=== PATIENT | male | born 1960 | race Caucasian/White ===

== ENCOUNTER → 2019-01-31 14:45 | Outpatient (CLI) | payer OTHER, SELFPAY ==
[2019-01-31 15:42] LABS: HEMOLYSIS < 15 (0-50); Iron 189 ug/dL (49-181)
[2019-01-31 15:51] LABS: Add Manual Diff / Slide Review NO; Basophils Absolute Auto 100 /uL (0-100); Basophils Percent Auto 1.2 % (0-2); Eosinophils Absolute Auto 400 /uL (0-450); Eosinophils Percent Auto 6.6 % (2-4); Hematocrit 46.8 % (41-53); Hemoglobin 16.1 g/dL (13.5-17.5); Lymphocytes Absolute Auto 1800 /uL (1100-4500); Lymphocytes Percent Auto 27.2 % (25-40); Mean Corpuscular HGB Conc 34.4 % (30-36); Mean Corpuscular Hemoglobin 33.2 PG (26-34); Mean Corpuscular Volume 96.4 fL (80-100); Monocytes Absolute Auto 600 /uL (0-900); Monocytes Percent Auto 9.3 % (3-14); Neutrophils Absolute Auto 3600 /uL (1500-7000); Neutrophils Percent Auto 55.7 % (50-75); Platelet Count 230 X10^3/uL (150-400); Red Blood Cell Count 4.86 X10^6/uL (4.5-5.9); Red Cell Distribution Width 13.1 % (11.6-14.8); White Blood Cell Count 6.5 X10^3/uL (4.5-11.0)
[2019-01-31 15:52] LABS: Percent Iron Saturation 56 % (20-50); Total Iron Binding Capacity 335 ug/dL (261-462); Transferrin 260 mg/dL (206-381)
== END ==
PROVIDERS: PCP Internal Medicine; Visit Provider Internal Medicine
DX: K62.5 Hemorrhage of anus and rectum (principal)
CPT/HCPCS: 36415; 83540; 83550; 85025

== ENCOUNTER 2019-09-12 14:47 | Observation (INO) | payer OTHER, SELFPAY ==
[2019-09-12] VITALS (14 sets, daily range): BP systolic 115–139; BP diastolic 63–89; PULSE 54–104; RESP 10–18; TEMP 35.9–37.6; O2SAT 91–97; BMI 29.2
--- NOTE | 2019-09-12 | DI.RAD.S_ITS ---
PROCEDURE: XR ANKLE LT MIN 3V INDICATIONS: EXTERNAL FIXATOR PLACEMENT TECHNIQUE: 7 operative views of the ankle were acquired. COMPARISON: [facility], , XR ANKLE LT MIN 3V, 09/12/2019, 15:19. FINDINGS: 7 operative images are obtained during performance of external fixation of a markedly comminuted distal tibial fracture IMPRESSION: Operative imaging utilized during performance of external fixation of a markedly comminuted distal tibial fracture. Dictated by: Maxwell Zuluaga M.D. on 09/15/2019 at 9:01 Approved by: Maxwell Zuluaga M.D. on 09/15/2019 at 9:04
--- NOTE | 2019-09-12 15:11 | DI.RAD.S_ITS ---
PROCEDURE: XR ANKLE LT MIN 3V INDICATIONS: missed step on ladder left ankle injury TECHNIQUE: 3 views of the ankle were acquired. COMPARISON: [facility], CR, FOOT 3V LEFT, 11/13/2017, 18:53. FINDINGS: Bones: There is a comminuted distal tibia fracture, with intra-articular involvement. There is moderate displacement. The distal fibula demonstrates a comminuted fracture seen at the level of the syndesmosis, with lesion. There is widening of the syndesmosis and associated widening of ankle mortise. No definite posterior malleolar fracture can be seen. The talar dome demonstrates no krishna abnormality. Age-appropriate bony degenerative changes are seen. Plantar and Achilles calcaneal spurs are seen. No suspicious lytic or blastic lesions are seen. Soft tissues: No tibiotalar joint effusion. Achilles tendon appears normal. IMPRESSION: Comminuted fractures of the distal tibia and distal fibula. There is intra-articular involvement seen and there is widening of the syndesmosis with widening of ankle mortise. Dictated by: Mason Matthew M.D. on 09/12/2019 at 14:53 Approved by: Mason Matthew M.D. on 09/12/2019 at 14:55
--- NOTE | 2019-09-12 16:14 | ED.LOWEXIN ---
HPI - Extremity Injury (Lower) General Chief Complaint: Extremity Injury, Lower Stated Complaint: LEFT ANKLE INJURY FALL LIGHT HEADED Time Seen by Provider: 09/12/19 16:14 Source: patient Mode of arrival: Wheelchair Limitations: no limitations History of Present Illness HPI Narrative: 59-year-old male comes emergency department with concern for ankle fracture. Patient states he was on a ladder today. He went to jump off try to land on his steps missed an hurt his ankle. He states he has pain anytime he tries ankle. He denies any numbness or tingling. He is able to wiggle his toes. He denies any other injuries. He has history of hypertension and asthma. Denies any other medical issues. Denies any prior surgeries. Denies any allergies to medications. Patient does orthopedic surgeon has been in the past. Related Data Home Medications Medication Instructions Recorded Confirmed amlodipine [Norvasc] 5 mg PO QDAY #0 09/04/16 mometasone-formoterol [Dulera] 1 inh INH #0 09/04/16 Allergies Allergy/AdvReac Type Severity Reaction Status Date / Time No Known Drug Allergies Allergy Verified 09/12/19 15:10 Review of Systems Review of Systems ROS Unobtainable: All systems reviewed & are unremarkable except as noted in HPI and below Patient History Social History household members: spouse Smoking Status: Never smoker alcohol intake frequency: 0-2 drinks per day Alcohol type: beer Substance Use Type: does not use Exam Narrative Exam Narrative: GENERAL: Alert and oriented x three, well-nourished, well-appearing male in mild distress. HEENT: Head normocephalic, atraumatic, EOMI, pupils reactive, face symmetric, moist mucous membranes NECK: Supple, full range of motion CARDIOVASCULAR: Regular rate and rhythm without murmurs, rubs or gallops. RESPIRATORY: Breath sounds equal bilaterally, no wheezes rales or rhonchi. ABDOMEN: Soft, nontender. Normoactive bowel sounds all 4 quadrants. No guarding or rebound, rigidity, no mass : No CVA tenderness EXTREMITIES: Patient has mild deformity of the left ankle. He has 2+ dorsalis pedis. He has cap refill less than 2 seconds in all 5 toes, he has normal sensation in all 5 toes and throughout the foot. No obvious ecchymosis. Patient does have some mild edema. Neurovascularly intact NEUROLOGICAL: Cranial nerves II through XII grossly intact. Moving all extremities SKIN: Warm, dry, no petechiae, no rashes or lesions. Initial Vital Signs Initial Vital Signs: Vital Signs Temperature 96.6 F L 09/12/19 15:07 Pulse Rate 54 L 09/12/19 15:07 Respiratory Rate 16 09/12/19 15:07 Pulse Oximetry 95 09/12/19 15:07 Course Orders Ordered: ED Orders 09/12/19 15:11 XR ankle LT min 3V Stat Fentanyl (Sublimaze) 0 mcg IV Q5M PRN PRN Reason: Pain, Moderate (4-6) Hydromorphone HCl (Dilaudid) 0.5 mg IV Q2H PRN PRN Reason: Pain, Severe (7-10) Last Admin: 09/12/19 19:27 Dose: 0.5 mg Documented by: SHAWN Hydromorphone HCl (Dilaudid) 0 mg IV Q5M PRN PRN Reason: Pain, Moderate (4-6) Lactated Ringer's (Lactated Ringers) 1,000 mls @ 42 mls/hr IV CONT EDEL Meperidine HCl (Demerol) 12.5 mg IV NOW PRN PRN Reason: Mild pain or shivering Naloxone HCl (Narcan) 0.2 mg IV Q2MIN PRN PRN Reason: Opiate Reversal Ondansetron HCl (Zofran) 4 mg IV Q4HR PRN PRN Reason: Nausea And Vomiting Ondansetron HCl (Zofran) 4 mg IV NOW PRN PRN Reason: Nausea And Vomiting Discontinued Medications Cefazolin Sodium/Dextrose (Ancef) 2 gm in 100 mls @ 200 mls/hr IV NOW ONE Stop: 09/12/19 18:15 Morphine Sulfate (Morphine) 4 mg IV NOW ONE Stop: 09/12/19 16:21 Last Admin: 09/12/19 16:52 Dose: 4 mg Documented by: NERIS Vital Signs Vital signs: Vital Signs - 8 hr 09/12/19 15:07 Temperature 96.6 F L Pulse Rate 54 L Respiratory Rate 16 Pulse Oximetry 95 MDM - Extremity Injury (Lower) Imaging Data Left ankle x-ray: Radiologist's impression: [address] [address] XRay Report Signed Patient: Kam Arce WMR#: [id number] : 1960Acct:[id number] Age/Sex: 59 / MDate of Service: 09/12/19 Loc: ED Accession Number: [id number] Procedure: XR ankle LT min 3V Ordering Provider: Barby Edwards D.O. PROCEDURE: XR ANKLE LT MIN 3V INDICATIONS: missed step on ladder left ankle injury TECHNIQUE: 3 views of the ankle were acquired. COMPARISON: [facility], CR, FOOT 3V LEFT, 11/13/2017, 18:53. FINDINGS: Bones: There is a comminuted distal tibia fracture, with intra-articular involvement. There is moderate displacement. The distal fibula demonstrates a comminuted fracture seen at the level of the syndesmosis, with lesion. There is widening of the syndesmosis and associated widening of ankle mortise. No definite posterior malleolar fracture can be seen. The talar dome demonstrates no krishna abnormality. Age-appropriate bony degenerative changes are seen. Plantar and Achilles calcaneal spurs are seen. No suspicious lytic or blastic lesions are seen. Soft tissues: No tibiotalar joint effusion. Achilles tendon appears normal. IMPRESSION: Comminuted fractures of the distal tibia and distal fibula. There is intra-articular involvement seen and there is widening of the syndesmosis with widening of ankle mortise. Dictated by: Mason Matthew M.D. on 09/12/2019 at 14:53 Approved by: Mason Matthew M.D. on 09/12/2019 at 14:55 [facility] Narrative Medical decision making narrative: I spoke with Dr. Yu, she did review patient's and plan for OR tonight. Patient is having a line placed and pain medications. Patient had some water initially on arrival. He had toast at 8:[address] Clarke in the department and consented patient. Discharge Plan Departure Patient Disposition: Admitted As Inpatient Clinical Impression: Ankle fracture, left Discharge Date/Time: 09/12/19 18:06 Instructions: DI for Ankle Fracture Additional Instructions: Follow-up with Orthopedic surgery in the next 5-7 days for recheck. Take the medication as prescribed, this medication can make you sleepy do not drive, perform hazardous activities or make any major decisions taking it. Splint Care: Keep splint clean and dry. Elevated affected body part to decrease swelling. OK to use ice pack on the affected body part. Use for 15-20 minutes each time, for 5-6x per day. If you develop worsening pain, numbness, tingling, discoloration of the affected body part, loosen the splint by loosening the MAYKEL wrap, and either see your doctor for an urgent re-assessment, or return to the Emergency Department. Return to the Emergency Department for any new or worsening symptoms. Referrals: Macey Clarke MD [Physician] - Amaury Dai MD [Primary Care Provider] - Admit Date/Time: 09/12/19 16:54 Admit Provider: Macey Clarke
[2019-09-12] MEDS: MORPHINE 4 MG/ML INJ IV (16:52)
--- NOTE | 2019-09-12 17:34 | PM.HP.1 ---
History of Present Illness History of Present Illness Date Patient Seen: 09/12/19 Time Patient Seen: 17:34 Chief complaint: LEFT ANKLE INJURY FALL LIGHT HEADED Narrative: This 59-year-old male that presented to the ER at [facility] today after falling off a ladder approximately 4 ft. He fell onto his left side twisted his ankle as he went down. He in dorsal ankle pain deformity swelling inability to weight bear and a knee and elbow abrasion as well as a small chin abrasion. X-rays in the [facility] Emergency room demonstrate a comminuted intra-articular tibial pilon fracture. Patient's past medical history significant for hypertension. He is not on any blood thinners. He does use inhaler occasionally for asthma. Otherwise past medical history is negative. Patient is with his in the emergency room. Denies loss of consciousness. Denies numbness or tingling. Injury happened at home Patient History Family & Social History Safety & Behavioral: Feels Safe in Current Yes Environment Been Physically Hurt or No Threatened By a Person Tobacco & Substance use: Smoking Status Never smoker alcohol intake frequency 0-2 drinks per day Substance Use Type does not use Meds Home Medications and Allergies Home Medications Medication Instructions Recorded Confirmed Type amlodipine [Norvasc] 5 mg PO QDAY #0 09/04/16 History mometasone-formoterol [Dulera] 1 inh INH #0 09/04/16 History Allergies Allergy/AdvReac Type Severity Reaction Status Date / Time No Known Drug Allergies Allergy Verified 09/12/19 15:10 Review of Systems Review of Systems Narrative: Pain left ankle. Mild tenderness around abrasions left knee left elbow otherwise negative ROS Unobtainable: All systems reviewed & are unremarkable except as noted in HPI and below Exam Vital Signs (past 8 hours): - 09/12/19 15:07 Temperature 96.6 F L Pulse Rate 54 L Respiratory Rate 16 Pulse Oximetry 95 Oxygen Delivery Method Room Air Narrative Exam Narrative: General exam: Alert oriented male in no acute distress in stretcher in the ER hallway. Pain currently controlled. Oriented to person place time an injury. X4 HEENT exam: Small bruise on his chin otherwise normocephalic atraumatic Respiratory exam: Clear to auscultation bilaterally CV exam: Regular rate and rhythm Abdomen exam: Nontender Extremities: Small abrasion elbow, left. Full range of motion right and left upper extremities nontender to palpation. Demonstrates active elbow flexion extension wrist flexion extension. Sensation grossly intact to light Lower extremity: Right lower extremity atraumatic no tenderness to palpation and no swelling full range of motion knee and ankle. Wiggles toes. Brisk capillary refill. Palpable dorsalis pedis pulse. Soft calf Left lower extremity demonstrates gross deformity at the ankle mild swelling no blisters. No open wounds. Patient wiggles toes. Dorsalis pedis pulses palpable. Calf is soft. Superficial abrasion at the left knee. Gross sensation to light touch superficial peroneal deep peroneal sural and saphenous nerve distributions. Rest of the motor sensory exam limited due to patient condition Objective Imaging Left ankle x-ray: My impression: Three views left ankle AP oblique and lateral demonstrate comminuted distal tibia fracture in the metaphysis into the plafond. The anterior lateral distal tibial fragment Chaput fragment is displaced approximately 2 cm overlapping the fibula. There additional free fracture flag minutes proximally and posteriorly Radiologist's impression: IMPRESSION: Comminuted fractures of the distal tibia and distal fibula. There is intra-articular involvement seen and there is widening of the syndesmosis with widening of ankle mortise. Dictated by: Mason Matthew M.D. on 09/12/2019 at 14:53 Approved by: Mason Matthew M.D. on 09/12/2019 at 14:55 Assessment & Plan Assessment and plan (1) Pilon fracture of left tibia: Problem details: Comminuted intra-articular tibial plafond fracture. Patient has significant displacement of his plafond with multiple fragments including a largely displaced Chaput fragment. Patient has been indicated for staged fixation of this injury we discussed that these intra-articular fractures are typically managed 1st with an external fixator and then when the soft tissues are amenable to definitive open reduction internal fixation with plates and screws. Plan will be to take the patient to the OR tonight for placement of external fixation. Following the external fixation the patient will have a CT scan for operative planning. The patient will be admitted to the hospital for pain control overnight. The patient will be discharged home when pain is controlled likely postop day 1. Patient will follow up in approximately 2 weeks for a skin check and scheduling for definitive fixation. The risks benefits and alternatives to the procedure were discussed with the patient in detail. The risks of surgery include but are not limited to infection, malunion, nonunion, persistence of pain, damage to nerves and blood vessels, posttraumatic arthritis, DVT, PE, cardiopulmonary complications and . The patient expressed a thorough understanding of the risks and benefits of surgery and has elected to proceed. Consent was signed. We discussed that this would be a likely 2 stage procedure 1st. With external fixation tonight and then coming back for fixator removal and definitive fixation. We discussed that due to the energy of this injury the patient made developed blisters and these would need time for resolution and the quality of the soft tissues as what dictate the ability to be able to definitively fix the fracture with plates and screws. We discussed particularly the risk of posttraumatic arthritis with an intra-articular injury. Discussed DVT prophylaxis likely with Lovenox injections between the external fixator and definitive treatment and then possibly aspirin after the definitive surgery. Current visit: Yes Status: Acute (2) HTN (hypertension): Problem details: Home meds to start postop day 1 Current visit: Yes Status: Acute Quality VTE Deep Vein Thrombosis/Pulmonary Embolism Present on Admission: No
[2019-09-12] MEDS: HYDROMORPHONE 0.5 MG INJ IV (19:27)
[2019-09-12] MEDS: LACTATED RINGERS 1,000 ML 42 ML IV ×2 (20:40→23:27)
--- NOTE | 2019-09-12 21:16 | PM.OP.1 ---
Operative Date/Time/Diagnoses Date of procedure: 09/12/19 Time of procedure: 22:20 Pre-op diagnosis: Left tibial pilon fracture S82.872 Post-op diagnosis: same Procedure & Clinicians Procedure: 1. Application external fixation, multiplanar left pilon fracture CPT code 98644 Same procedure as scheduled: Yes Indications: The patient is a 59-year-old male that fell off approximately 4 ft ladder earlier this evening he had immediate pain deformity of his left ankle and was unable to weightbear. He was brought to [facility] and found to have a comminuted pilon fracture with significant joint displacement. Patient was indicated for staged external fixation of his left pilon fracture. We discussed once his soft tissues are resolved will schedule definitive open reduction internal fixation. The risks benefits and alternatives to the procedure were discussed with the patient in detail including but not limited to infection, malunion nonunion, need for additional procedures, pain, damage to nerves and vessels, wound healing problems, amputation, DVT, pulmonary embolism, cardiac and pulmonary complications of general anesthesia including stroke, paralysis, . Consent was signed. Surgeon: Macey Clarke Click Yes if Unassisted: Yes Anesthesia Type: General Operative Notes Findings: Comminuted distal tibia fracture with inferior and lateral displaced Chaput fragment Closure Type: not applicable Specimen(s): none sent Prosthetic devices, grafts, tissues, transplants, or devices: Arthrex external fixator pins and bars Estimated Blood Loss (mL): 0 Blood products transfused: none Tourniquet time (min): 0 Procedure in detail: Patient was seen in the preoperative area the site of surgery was marked informed consent confirmed. The patient was then brought back to the operating room by the anesthesia team. The patient was placed supine on the operative table. General anesthetic was administered. Well-padded thigh tourniquet was placed but not elevated. SCD was on the contralateral lower extremity. The left lower extremities prepped and draped in the standard sterile fashion. A formal time-out procedure was performed confirming the patient, side, site of surgery and administration of appropriate preoperative antibiotics. All were in agreement. Implants were in the room. Attention was turned to the left lower extremity. The C-arm was brought in and the sites for the proximal pins were marked out. These were 2x 5.0 pins placed in the standard fashion with pre-drilling. The pins were placed Bicortical just to the medial face of the tibial crest, the proximal pin 1st slid off to the lateral crest and this was repositioned medially for appropriate bicortical fixation. Once these were secured attention was turned to the calcaneus pin. This was placed in the standard fashion medial to lateral through the tuberosity. This was confirmed in bone on fluoroscopy. Next the clamps and bars were placed creating the delta frame. This was secured proximally and then traction was pulled distally to get the fracture back out to length. Several reduction maneuvers were made to complete the reduction. Including longitudinal traction and direct pressure directing the Chaput fragment proximal medial. Once this was satisfactory alignment was obtained final tightening was completed. There was a small amount of residual ticket broker vital this was felt to be acceptable for provisional reduction. Chaput fragment actually reduced quite well restoring the mortise. Final fluoroscopic images were obtained and final tightening with the hand wrench was completed. The end of the calcaneus pin was cut off and the pin caps placed. Pin sites were bolstered and a posterior splint was applied to help maintain neutral dorsiflexion and prevent equinus contracture. Fluff gauze was placed. And the splint was overwrapped with Olu. Once this was completed the patient was woken from anesthesia and taken to the recovery room in good condition. There no immediate complications to this procedure. Complications: none Post-operative Condition: stable Disposition: Acute Care Plan for aftercare: Nonweightbearing left lower extremity. DVT prophylaxis with Lovenox. Will discharge home with 2 weeks of Lovenox as well to take between the 1st stage in 2nd stage procedures. Follow-up with Dr. Clarke in 7 days for wound check. Strict elevation above the heart level as much as possible. Will have 2 doses postoperative antibiotics. May discharge when pain is controlled. Likely postop day 1. Will get CT scan prior to discharge home for definitive surgical planning.
[2019-09-12] MEDS: CEFAZOLIN 2 GM/100 ML FROZ.PIGGY IV (21:45)
[2019-09-12] MEDS: fentaNYL 100 MCG/2 ML INJ IV ×4 (23:15→23:36)
[2019-09-12] MEDS: HYDROMORPHONE 2 MG INJ IV ×4 (23:17→23:40)
[2019-09-13] VITALS (11 sets, daily range): BP systolic 100–153; BP diastolic 55–86; PULSE 63–85; RESP 13–18; TEMP 36.5–37.5; O2SAT 92–98
--- NOTE | 2019-09-13 00:19 | SUR.PHASEI ---
transferred pt to acute care floor in stable condition, vss. pt alert and talking to rn during transport. bedside report given to KELSI Reed and transferred care of pt to KELSI Reed at that time.
--- NOTE | 2019-09-13 00:25 | PC.NURSE ---
Softball Player Note: 0010: Arrived from PACU to rm 219 in acute care. Awake, alert. Vital signs stable. Lt leg elevated on 2 pillows, external fixator intact and aquacel dressing with samantha wrap cdi. HOB elevated 50 degrees per pt comfort. IV in place in rt wrist. Pt states his pain level is 7/10 at this time. 0025: arrived in room.
[2019-09-13] MEDS: LACTATED RINGERS 1,000 ML 75 ML IV (01:15)
[2019-09-13] MEDS: HYDROMORPHONE 0.5 MG INJ IV ×7 (01:16→10:30)
[2019-09-13] MEDS: CEFAZOLIN 2 GM/100 ML FROZ.PIGGY IV ×2 (01:16→09:16)
[2019-09-13 05:49] LABS: Hematocrit 43.1 % (41-53); Hemoglobin 15.3 g/dL (13.5-17.5); Mean Corpuscular HGB Conc 35.4 % (30-36); Mean Corpuscular Hemoglobin 34.5 PG (26-34); Mean Corpuscular Volume 97.5 fL (80-100); Platelet Count 208 X10^3/uL (150-400); Red Blood Cell Count 4.43 X10^6/uL (4.5-5.9); Red Cell Distribution Width 12.8 % (11.6-14.8); White Blood Cell Count 9.3 X10^3/uL (4.5-11.0)
[2019-09-13 05:54] LABS: Blood Urea Nitrogen 12 mg/dL (9-20); Calcium 8.7 mg/dL (8.4-10.2); Carbon Dioxide 27 mmol/L (22-32); Chloride 96 mmol/L (98-107); Estimated Glomerular Filt Rate > 60.0 mL/min (>60); Glucose 162 mg/dL (70-100); HEMOLYSIS < 15 (0-50); Potassium 4.4 mmol/L (3.4-5.1); Sodium 131 mmol/L (137-145)
[2019-09-13] MEDS: ENOXAPARIN 40 MG/0.4 ML SYRINGE SUBCUT (08:03)
[2019-09-13] MEDS: DOCUSATE 100 MG CAPSULE PO (08:03)
[2019-09-13] MEDS: AMLODIPINE 5 MG TABLET PO (08:03)
[2019-09-13] MEDS: ACETAMINOPHEN 325 MG TABLET 975 MG PO ×2 (08:03→13:21)
--- NOTE | 2019-09-13 08:56 | DI.CT.S_ITS ---
PROCEDURE: CT LE LT W CON INDICATIONS: pilon fracture TECHNIQUE: Noncontrast 3-mm axial sections acquired from the distal tibial shaft to the talar dome, with coronal and sagittal reformats.. COMPARISON: [facility], CR, XR ANKLE LT MIN 3V, 09/12/2019, 15:19. FINDINGS: Image quality: Excellent. Bones: Acute comminuted fracture involving distal tibial shaft extending to anterior portion of distal tibial plafond is seen. 2 dorsally displaced distal tibial shaft posterior cortical fragments are seen and oriented horizontally. Slight dorsal and lateral displacement of the posterior tibial plateau fragment is noted. There is also posterior lateral displacement of the medial tibial plateau fragment and medial malleolus with a gap measures up to 1.4 x 2.3 cm in largest transverse and AP dimension. There is widening of the distal tibiofibular syndesmosis and lateral mortise consistent with distal syndesmotic injury. No krishna dislocation is seen. No fibular fracture. No fracture is seen in the talus and calcaneus. External fixation hardware in posterior calcaneus is seen. Soft tissues: Marked soft tissue swelling around ankle joint is seen particularly over the medial malleolus. There is suggestion of moderate tibiotalar joint effusion. Small displaced fragments are noted within tibiotalar joint and distal tibiofibular syndesmosis. Achilles tendon is grossly intact. Extensor, flexor, peroneus tendons are grossly intact. IMPRESSION: 1. Acute comminuted and displaced fractures involving tibial shaft extending to involve distal tibial plafond as described in detail above. 2. No other fracture or dislocation is seen. 3. Soft tissue swelling around ankle joint. Moderate amount of joint effusion. Ankle tendons are grossly intact. Dictated by: Edwar Dey M.D. on 09/13/2019 at 9:26 Approved by: Edwar Dey M.D. on 09/13/2019 at 9:33
[2019-09-13] MEDS: OXYCODONE IR 10 MG TABLET PO ×3 (09:16→16:30)
--- NOTE | 2019-09-13 10:04 | PT.IIE ---
I certify that I have reviewed this documentation and is involved with this pt's care. Current Diagnoses Essential (primary) hypertension (09/12/19) Displaced pilon fracture of left tibia, initial encounter for closed fracture (09/12/19) Surgery Performed Operation Date: 09/12/19 18:45 Actual Procedures p staged fixation with placement of external fixation left tibia pilon fracture(Left) - Macey Clarke MD Physical Therapy Inpatient Evaluation/Re-Eval M2 PT-IP Current Condition Start: 09/13/19 11:58 Freq: NEEDED Status: Active Protocol: Document 09/13/19 10:04 JG (Rec: 09/13/19 12:37 JG [id number]) Physical Therapy Current Condition Current Condition Evaluation Date 09/13/19 Treatment Diagnosis L tibial fx external fixation, difficulty walking, decreased activity yury Onset Date 09/12/19 Precautions Other Precautions per Dr's order: strict L LE elevation above heart level as much as possible Weight Bearing Status Weight Bearing Status Non-Weight Bearing Allowed Weight Bearing Amount (enter % Non-weight bearing L LE or #) (%) M4 PT-IP Mobility and Gait Start: 09/13/19 11:58 Freq: NEEDED Status: Active Protocol: Document 09/13/19 10:04 JG (Rec: 09/13/19 12:37 JG [id number]) PT-Bed Mobility Assessment Supine to Sit Supine to Sit Minimal Assistance Scooting Scooting to Edge of Bed Standby Assistance PT-Transfer Assessment Sit to and From Stand Sit to and from Stand Minimal Assistance,1 Person Assistance,Use of Upper Extremities Equipment Transfer Assistive Device Gait Belt,Front Wheeled Walker Orthotic/Prosthetic Devices or Brace: No Transfers Transfer Destination Chair Transfer Technique ambulated with FWW Transfer Ability Level of Assist Minimal Assistance,1 Person Assistance,Use of Upper Extremities Comments Mobility Comments Pt in bed upon assessment. Resting BP 148/85. Pt able to sit up with SBA but required min A to support L LE while moving it off the bed. After educating pt on nonWBing status and to keep L LE off ground when standing, pt able to stand with UE pushoff to FWW and min A for stability. Pt requested to void bladder in bathroom. Pt ambulated to toilet and required min A to maintain balance while voiding . Pt then ambulated to the chair and was able to sit to/ from stand to the chair with min A for stability. Pt able to scoot back in chair SBA and keep leg lifted while PT placed pillows to elevate the leg. Pt's vitals were stable throughout mobility. Pt left in chair with L LE elevated and ice pack placed with call light and needs within reach. Gait Assessment Gait Gait Assistance Required: Minimum Assistance,1 Person Assist Distance (Feet) 20 Able to Maintain Weight Bearing Status Yes During Gait Assistive Devices Assistive Device Gait Belt,Front Wheeled Walker Orthotic/Prosthetic Devices or Brace: No Gait Deviations General Gait Pattern Flexed Trunk Factors Limiting Gait Function Factors Limiting Gait Function Decreased Activity Tolerance, Limited Range of Motion,Pain, Poor Balance Comments Gait Comments Pt required min A for stability to ambulate with nonWBing L LE and swing through gait pattern with FWW. Pt required cuing to slow pace for safety several times throughout ambulation. Pt able to maintain nonWBing status but had difficulty navigating walker without bumping L LE. Will assess ambulation at next tx with wide walker to prevent this. Stair Climbing Assessment Comments Stair Climbing Comments not assessed PT-Balance Assessment Sitting Balance and Reactions Static Sitting Balance Ability Good Dynamic Sitting Balance Ability Good Standing Balance and Reactions Static Standing Balance Ability Fair Dynamic Standing Balance Ability Fair Device Used FWW M6 PT-IP Treatment Start: 09/13/19 11:58 Freq: NEEDED Status: Active Protocol: Document 09/13/19 10:04 JG (Rec: 09/13/19 12:37 J [id number]) Physical Therapy Treatment Education Education Provided Precautions,Weight Bearing Status,Safety Other Treatments Other Treatment Performed Educated pt on equipment needs and recommendations. Disc need for wide walker for short distance mobility and ambulation and w/c with an elevated foot rest for long distance ambulation. Provided pt with DME list. Pt notes that he will ask to pick both wide walker and w/c up from the soroptomist. M7 PT-IP Assessment and Plan Start: 09/13/19 11:58 Freq: NEEDED Status: Active Protocol: Document 09/13/19 10:04 JG (Rec: 09/13/19 12:37 [id number]) PT Summary Assessment and Plan Potential Rehabilitation Potential Excellent Status of Condition at Evaluation Stable Summary Impairments Pain,ROM,Strength,Balance,Bed Mobility,Transfers,Gait, Activity Tolerance Assessment Summary Pt is 1 day s/p L tibial pilon fx external fixation with plans to complete an ORIF in a few weeks. Pt required min A for bed mobility to support L LE and min A for transfers and ambulation for balance and stability. Pt able to maintain nonWBing status throughout session but was impulsive and required cuing for safety. PT recommends d/c to home with assist once caregiver training complete and pt medically cleared. Goals Bed Mobility Goal Independent Transfer Goal Independent,Front Wheeled Walker Gait Goal Independent,Front Wheel Walker Gait Distance 100 Days to Meet Goals 5 Frequency of Treatment Frequency Of Treatment Twice a Day Treatment Plan Physical Therapy Treatment Plan Bed Mobility Training,Transfer Training,Gait Training, Therapeutic Exercise,Balance Retraining,Post Op Education, Hot or Cold Pack,Neuromuscular Re-ed Other Recommendations and Next Treatment Ambulation with wide walker Focus Caregiver training Recommendations To Nursing Amount of Assist Needed 1 Person Assist Discharge Recommendations PT Discharge Recommendations Home with Assistance, Outpatient PT
--- NOTE | 2019-09-13 13:33 | PC.NURSE ---
1315 Dr Clarke called to state she would be in to see Pt vivienne at approx 1700, plan to dc Pt to home. Pt has been OOB to chair and BRP using the walker. Pt taking PO pain meds for pain mgmnt.
--- NOTE | 2019-09-13 14:30 | PM.DS.1 ---
History of Present Illness History of Present Illness Date Patient Seen: 09/13/19 Time Patient Seen: 14:41 Chief complaint: LEFT ANKLE INJURY FALL LIGHT HEADED Narrative: The patient is a 59-year-old male that fell off approximately 4 ft ladder earlier this evening he had immediate pain deformity of his left ankle and was unable to weightbear. He was brought to [facility] and found to have a comminuted pilon fracture with significant joint displacement. Patient was indicated for staged external fixation of his left pilon fracture. We discussed once his soft tissues are resolved will schedule definitive open reduction internal fixation. The risks benefits and alternatives to the procedure were discussed with the patient in detail including but not limited to infection, malunion nonunion, need for additional procedures, pain, damage to nerves and vessels, wound healing problems, amputation, DVT, pulmonary embolism, cardiac and pulmonary complications of general anesthesia including stroke, paralysis, . Consent was signed. Discharge Providers Provider Date of admission: 09/12/19 16:54 Discharge Date: 09/13/19 Primary care physician: Amaury Dai MD Consults: 09/13/19 00:09 Consult to Physical Therapy Evaluate & Treat Comment: jerri FLYNN Physician Instructions: Evaluate and Treat Consult to Respiratory Therapy Evaluate & Treat Comment: Physician Instructions: Evaluate and treat Discharge provider: Ailyn Muñoz PA-C Summary Hospital Course Discharge Diagnosis: s/p Application external fixation, multiplanar left pilon fracture hypertension asthma Hospital Course: Kam was admitted for application of external fixation, multiplanar left pilon fracture with Dr. Clarke and he consented to procedure. Hospital course unremarkable. On POD #1 patient was ready for DC home. He worked with PT throughout his stay. He understands to be non-weightbearing. Patient will have lovenox for VTE prophylaxis and was trained by nursing this morning for home injection. He has been eating and voiding without difficulty or assistance. Exam Vital Signs (past 8 hours): - 09/13/19 07:30 09/13/19 07:57 09/13/19 11:30 Temperature 98.6 F 98.8 F Pulse Rate 72 74 Respiratory Rate 16 18 Blood Pressure 146/79 H 140/79 Pulse Oximetry 93 97 95 Oxygen Delivery Method Room Air Oxygen Flow Rate 0 Narrative Exam Narrative: Patient sitting in bedside chair in NAD. He is alert and oreinted X3. Splint well fitting and external fixator in place on left leg. Brisk capillary refill throughout. SILT throughout BLEs. Patient's pain well controlled with Oxycodone. He has concerns for pain control at night. Explained to patient he can take Vistaril at nighttime for muscle spasms and pain control. Objective Labs Result Diagrams: 09/13/19 05:10 09/13/19 05:10 Labs: Laboratory Results - last 24 hr 09/13/19 09/13/19 05:10 05:10 WBC 9.3 RBC 4.43 L Hgb 15.3 Hct 43.1 MCV 97.5 MCH 34.5 H MCHC 35.4 RDW 12.8 Plt Count 208 Sodium 131 L Potassium 4.4 Chloride 96 L Carbon Dioxide 27 BUN 12 Creatinine 0.80 Estimated GFR > 60.0 BUN/Creatinine Ratio 15.0 Glucose 162 H Calcium 8.7 Discharge Plan Discharge Plan Patient Disposition: Home Discharge Med Rec/Prescriptions Prescriptions: New acetaminophen 325 mg Tablet 975 mg PO TID Qty: 20 RF: 0 docusate sodium [DOK] 100 mg Capsule 100 mg PO BID Qty: 20 RF: 0 enoxaparin [Lovenox] 40 mg/0.4 mL Syringe 40 mg subcut DAILY 14 Days RF: 0 oxycodone 5 mg Tablet 5 mg PO Q4-6H PRN (Reason: Pain, Moderate (4-6)) Qty: 42 RF: 0 hydroxyzine HCl 25 mg tablet 25 mg PO TID PRN (Reason: nausea and vomiting) Qty: 30 RF: 0 Continued amlodipine [Norvasc] 5 MG tablet 5 mg PO QDAY Qty: 0 RF: 0 mometasone-formoterol [Dulera] 100 MCG/5 MCG HFA aerosol inhaler 1 inh INH Qty: 0 RF: 0 Follow up/Referrals: Macey Clarke MD [Physician] - Amaury Dai MD [Primary Care Provider] - Provider Discharge Instructions Other treatments: Nonweightbearing left lower extremity. DVT prophylaxis with Lovenox. Will discharge home with 2 weeks of Lovenox as well to take between the 1st stage in 2nd stage procedures. Follow-up with Dr. Clarke in 7 days for wound check. Strict elevation above the heart level as much as possible. Visit Report/Discharge Packet Instructions: How to Use Crutches, DI for Ankle Fracture, DI for Open Reduction Internal Fixation Surgery, Enoxaparin Injection, How to Care for Your External Fixation Device Stand Alone Forms: Surgery Discharge Visit Report Forms: Patient Portal/API, Stroke Signs & Symptoms Discharge Data Primary Care Provider: Amaury Dai Attending Provider: Macey Clarke Admit Date/Time: 09/12/19 16:54 Quality VTE Deep Vein Thrombosis/Pulmonary Embolism Present on Admission: No
--- NOTE | 2019-09-13 15:19 | CM.DANOTE ---
DCP/Assessment: Reviewed chart. Patient is a 59yr old male admitted to [facility] for left tibia fx. PCP listed is Dr. Dai. Primary payor is 1)Nguyễn. Met with patient explained CM/SW role. Patient reports that he fell off ladder at home while winterizing his trailer. Patient reports that he was completely I prior to fall. Patient has supportive spouse and hopes to return home this evening. Patient's spouse obtaining DME at [facility] for patient to use while recovering. Currently patient in leg brace until he can undergo surgery which is expected in a few weeks. At this time patient believes he will be able to manage with supportive spouse at home. No identified d/c planning needs. P: Home when stable. JENNIFER Davidson Discharge Planning/Care Management CM Discharge Assessment Start: 09/13/19 15:15 Freq: Status: Active Protocol: Document 09/13/19 15:15 KJS (Rec: 09/13/19 15:19 KJS [id number]) Discharge Planning Assessment Assigned Diamond Wheel Molder JENNIFER Davidson Contact Information Teresa Arce (spouse) Advance Directives? No History Provided By Patient Prior Living Arrangements House Household Members spouse Type of transporation used prior to Drives own vehicle admit Independent with ADL's Yes Is patient alert and oriented? Yes Caregiver for Another No DME Already Rented / Owned Wheelchair,FWW / Walker Barriers to Discharge No Discharge Plan Home Transportation Arrangement Spouse Whiteboard Updated in Patient Room with Yes name and ext. # of Diamond Wheel Molder Review Status In Process Next Review Type Continued Stay Review
--- NOTE | 2019-09-13 15:38 | PT.IPTN ---
This is to certify that I have reviewed this documentation and is involved with this pt's care. Current Diagnoses Essential (primary) hypertension (09/12/19) Displaced pilon fracture of left tibia, initial encounter for closed fracture (09/12/19) Surgery Performed Operation Date: 09/12/19 18:45 Actual Procedures p staged fixation with placement of external fixation left tibia pilon fracture(Left) - Macey Clarke MD Physical Therapy Treatment Note M2 PT-IP Current Condition Start: 09/13/19 11:58 Freq: NEEDED Status: Discharge Protocol: Document 09/13/19 10:04 JG (Rec: 09/13/19 12:37 JG [id number]) Physical Therapy Current Condition Current Condition Evaluation Date 09/13/19 Treatment Diagnosis L tibial fx external fixation, difficulty walking, decreased activity yury Onset Date 09/12/19 Precautions Other Precautions per Dr's order: strict L LE elevation above heart level as much as possible Weight Bearing Status Weight Bearing Status Non-Weight Bearing Allowed Weight Bearing Amount (enter % Non-weight bearing L LE or #) (%) M3 PT-IP Subjective Start: 09/13/19 11:58 Freq: NEEDED Status: Discharge Protocol: Document 09/13/19 15:38 JG (Rec: 09/13/19 17:01 JG [email or web address]) Subjective Physical Therapy Visit Type Type Treatment Note Visit Start Time 15:38 Visit Stop Time 15:46 Total Visit Minutes 8 Notes Tx led by XU Harvey, supervised by PT [place] Number of PACKAGING SPECIALIST Visits 0 Physical Therapy Visit Comments Patient Comments I am feeling better than I did this morning, much less pain. I think I'm ready to go home. Patient Goals Return home Therapy Pain Assessment Pain When Pain Assessed At Rest Pain Present Pain Present Pain Reported Location left ankle Intensity 3 Scale Used Numeric (1 - 10) Description Aching,Acute,With Movement Pain Management Techniques Distraction,Elevation M4 PT-IP Mobility and Gait Start: 09/13/19 11:58 Freq: NEEDED Status: Discharge Protocol: Document 09/13/19 15:38 JG (Rec: 09/13/19 17:01 JG [id number]) PT-Transfer Assessment Sit to and From Stand Sit to and from Stand Standby Assistance,Use of Upper Extremities Equipment Transfer Assistive Device Gait Belt,Front Wheeled Walker Orthotic/Prosthetic Devices or Brace: No Transfers Transfer Destination Chair Transfer Technique ambulated with FWW Transfer Ability Level of Assist Contact Guard Assistance,Use of Upper Extremities Comments Mobility Comments Pt in chair with L LE elevated upon assessment. Pt required no more than SBA for sit to and from stand and to move in chair but requires CGA for turning to transfer. Pt able to lift L LE independently to remove and place pillows. Pt left in chair with L LE elevated, and call light and needs within reach. Gait Assessment Gait Gait Assistance Required: Contact Guard Assist Distance (Feet) 15 Able to Maintain Weight Bearing Status Yes During Gait Assistive Devices Assistive Device Gait Belt,Front Wheeled Walker Orthotic/Prosthetic Devices or Brace: No Factors Limiting Gait Function Factors Limiting Gait Function Decreased Activity Tolerance, Limited Range of Motion,Pain, Poor Balance Comments Gait Comments Improved stability and ability to clear fixators during ambulation with wide FWW. Pt ambulated with swing through pattern and no more that CGA with wide FWW. Pt able to amb with SBA when moving in straight direction but required CGA for stability with turns. Cued pt to slow down when turning to improve safety. Stair Climbing Assessment Comments Stair Climbing Comments not assessed PT-Balance Assessment Sitting Balance and Reactions Static Sitting Balance Ability Good Dynamic Sitting Balance Ability Good Standing Balance and Reactions Static Standing Balance Ability Good Dynamic Standing Balance Ability Fair Device Used wide FWW M6 PT-IP Treatment Start: 09/13/19 11:58 Freq: NEEDED Status: Discharge Protocol: Document 09/13/19 15:38 JG (Rec: 09/13/19 17:01 JG [email or web address]) Physical Therapy Treatment Education Education Provided Weight Bearing Status,Safety Other Treatments Other Treatment Performed Reviewed equipment needs with pt. Pt confirmed that his was able to cherry picker operator a wide FWW, crutches, and a w/c from the soroptomist. Crutches in room but FWW was in 's car and she had left the hospital to run an errand. Educated pt on how to fit his wide FWW height properly and asked pt if he would like us to assist him with fitting the walker later. Pt denied and said he would be able to do it. PT asked if pt would like PT to write instructions down and pt denied. M7 PT-IP Assessment and Plan Start: 09/13/19 11:58 Freq: NEEDED Status: Discharge Protocol: Document 09/13/19 15:38 JG (Rec: 09/13/19 17:01 [email or web address] [id number]) PT Summary Assessment and Plan Potential Rehabilitation Potential Excellent Status of Condition at Evaluation Stable Summary Impairments Pain,ROM,Strength,Balance, Transfers,Gait,Activity Tolerance Progress Towards Goals Progressing Toward Goals Assessment Summary Improved ability to lift L LE during chair mobility likely related to improved pain control. Pt required no more than CGA during treatment for stability and balance during turns. Demonstrated improved stability with use of wide FWW for short distance ambulation . Cont to recommend use of w/c for long distance ambulation d/t limited activity tolerance and pt agrees. Pt safe to d/c to home with assist from spouse once medically cleared. Goals Bed Mobility Goal Independent Transfer Goal Independent,Front Wheeled Walker Gait Goal Independent,Front Wheel Walker Gait Distance 100 Days to Meet Goals 5 Frequency of Treatment Frequency Of Treatment Twice a Day Treatment Plan Physical Therapy Treatment Plan Bed Mobility Training,Transfer Training,Gait Training, Therapeutic Exercise,Balance Retraining,Post Op Education, Hot or Cold Pack,Neuromuscular Re-ed Other Recommendations and Next Treatment Ambulation with wide walker Focus Caregiver training Recommendations To Nursing Amount of Assist Needed 1 Person Assist Discharge Recommendations PT Discharge Recommendations Home with Assistance, Outpatient PT
--- NOTE | 2019-09-13 17:14 | PC.NURSE ---
1655/DC note: PT in to work with patient one more time. able to obtain both crutches & walker for home use, PT instructing patient to use walker as it will provide more stability. He is aware to be non-weight bearing to LLE. Drsg/Fixation device CDI. IV DC'd. All DC paperwork & instructions reviewed. left to garbage pick up man prescriptions, then came back to garbage pick up man Kam for DC home. Patient medicated with oxycodone 10 mg prior to DC. States he has adequate pain relief from medication. Pt assisted into wheelchair, CONTOUR PATH TAPE MILL OPERATOR wheeled down to ER entrance where drove him away via private car, all DC paperwork and belongings sent with them.
== END 2019-09-13 16:55 | disposition home or self-care (01) ==
LOC: ED 16:14 → AC 16:55
PROVIDERS: Admitting Provider Orthopaedic Surgery Foot and Ankle Surgery; Emergency Provider Emergency Medicine; PCP Internal Medicine; Visit Provider Orthopaedic Surgery Foot and Ankle Surgery
PROC: (CPT 20692; principal; 2019-09-12 18:45)
DX: S82.872A Displaced pilon fracture of left tibia, initial encounter for closed fracture (principal); M25.572 Pain in left ankle and joints of left foot; W11.XXXA Fall on and from ladder, initial encounter; I10 Essential (primary) hypertension
CPT/HCPCS: 20692; 36415; 73610; 73700; 76000; 80048; 85027; 94762; 96365; 96372; 96375; 96376; 97116; 97161; 97530; 99282; 99284; G0378; J0690; J1100; J1170; J1650; J2270; J2405; J2704; J3010

== ENCOUNTER 2019-09-26 06:06 | Day surgery (SDC) | payer OTHER, SELFPAY ==
[2019-09-12 18:25] VITALS: BMI 29.2
[2019-09-26] VITALS (19 sets, daily range): BP systolic 125–159; BP diastolic 78–93; PULSE 72–95; RESP 12–81; TEMP 36.2–37; O2SAT 16–100; BMI 30.5
--- NOTE | 2019-09-26 | DI.RAD.S_ITS ---
PROCEDURE: XR ANKLE LT MIN 3V INDICATIONS: ANKLE FX REPAIR TECHNIQUE: 7 views of the ankle were acquired. COMPARISON: [facility], CR, XR ANKLE LT MIN 3V, 09/12/2019, 22:11. [facility], CR, XR ANKLE LT MIN 3V, 09/12/2019, 15:19. FINDINGS: Bones: No previously identified fractures or dislocations. The complex comminuted displaced fractures involving the distal tibia and fibula have been successfully reduced to virtual anatomic alignment. Ankle mortise is normally aligned. No suspicious bony lesions. Soft tissues: No tibiotalar joint effusion. Achilles tendon appears normal. IMPRESSION: Virtual anatomic alignment established after ORIF of complex comminuted impacted distal tibia and fibular fractures on the left. Dictated by: Chai Harrell M.D. on 09/26/2019 at 13:09 Approved by: Chai Harrell M.D. on 09/26/2019 at 13:10
--- NOTE | 2019-09-26 07:20 | PM.PREOP ---
Pre-operative Note Interval Note History & Physical reviewed/Exam performed by Physician: Yes Changes to H&P: No
[2019-09-26] MEDS: MIDAZOLAM 2 MG/2 ML VIAL (08:01)
[2019-09-26] MEDS: CEFAZOLIN 2 GM/100 ML FROZ.PIGGY IV ×2 (08:04→18:12)
[2019-09-26] MEDS: BUPIVACAINE 0.25% W/ EPI 30 ML VIAL INJ (08:37)
[2019-09-26] MEDS: LACTATED RINGERS 1,000 ML 42 ML IV (09:54)
--- NOTE | 2019-09-26 13:13 | P.OP_ITS ---
Operative Date/Time/Diagnoses Date of procedure: 09/26/19 Time of procedure: 08:30 Pre-op diagnosis: Left displaced distal tibia fracture, pilon fracture S82. 872 Post-op diagnosis: same Procedure & Clinicians Procedure: 1. Staged open reduction internal fixation left pilon fracture, left tibia CPT code 86420-33 2. Staged removal external fixation device ankle, left CPT code 47210-79 Same procedure as scheduled: Yes Indications: Patient is a 59-year-old male that fell off a ladder and sustained a comminuted left distal pilon fracture. The patient was placed into an external fixator for staged treatment. He returned to for his definitive procedure today. His soft tissue has resolved appropriately for internal fixation. The risks and benefits of the procedure have been discussed with the patient even opportunity to ask questions. The risks of surgery include but are not limited to infection, malunion, nonunion, persistence of pain, damage to nerves and blood vessels, posttraumatic arthritis, DVT, PE, cardiopulmonary complications and . The patient expressed a thorough understanding of the risks and benefits of surgery and has elected to proceed. Consent was signed in the office. Surgeon: Macey Clarke Clinical Counselor: Diaz Mcclain Anesthesia Type: General, Peripheral nerve block and Local Operative Notes Findings: Comminuted left pilon fracture: Large Chaput fragment many small intra-articular fragments with a impacted area with small loss of cartilage at the distal anterior tibia. Chaput fragment was open booked to retrieve the loose fragment from the syndesmosis was previously noted on the CT scan. The metaphyseal fracture was approached through a separate medial approach this was buttressed 1st within its attempted antiglide plate however there was some still some posterior sag so this was reduced and then lagged anterior to posterior with a 3 5 cortical screw. This held the metaphyseal fragment well then the articular fragment was reduced using the pointed reduction clamps again there was noted to be a small area anterior cartilage and cortex loss at the distal tibia a between the Chaput fragment and the larger medial fragment. This was pinned in placed checked under fluoroscopy and then fixed with a 2 7 lag screw a to P and A 4 0 cancellous cannulated screw lateral to medial. Next a 4 hole 1/3 tubular plate was used to buttress the proximal part of the large Chaput anterior lateral fragment and then a medial plate was placed with cortical screws proximally and locking screws distally. Closure Type: primary Specimen(s): none sent Applied: implant(s) (Arthrex 6 hole left medial distal tibial plate and screws (2 7 locking distal, 3 5 nonlocking proximal). Arthrex 4 hole 1/3 tubular plate, 14.0 cannulated screw, Arthrex) Estimated Blood Loss (mL): 50 Blood products transfused: none Tourniquet time (min): 130 Procedure in detail: Patient is seen the preoperative area the site of surgery was marked informed consent confirmed. The patient was then taken to the block room by the anesthesia team. A preoperative block was placed for postoperative pain control. This was completed by the anesthesia team. Patient was then brought to the operating room positioned onto the operative table. General anesthesia was administered. A well-padded thigh tourniquet was placed. All bony prominences were well padded. An SCD was placed on the contralateral lower extremity. The left lower extremity is prepped and draped in the standard sterile fashion. The external fixator was prepped into the field. Formal time-out procedure was performed confirming the patient's side and site of surgery administration of appropriate preoperative antibiotics. All were in agreement. Implants were in the room and accounted for. Attention turned to the left lower extremity an Esmarch bandage was utilized for exsanguination the tourniquet was raised on the thigh to 250 mm of mercury and stayed there for 130 minutes and then was let down and not re-elevated. Anterior lateral approach was made over the distal tibia and in line with the 4th ray. This taken down through the skin and subcutaneous tissues. The superficial peroneal nerve was localized and retracted laterally. The retinaculum was then entered the anterior compartment musculature and extensor tendons were retracted medially. A displaced Chaput fragment was identified and the arthrotomy was made. The joint was exposed and the Chaput fragment was freed and open booked using retractors and a lamina director of corporate sponsorships. The joint was irrigated. There were many small articular fragments loose within the joint and there was noted area of a comminuted and the anterior distal tibial cortex loss. The Chaput fragment was open booked and the previously noted free fragment with in the syndesmosis was removed. The small loose fragments in the soft tissues from the anterior comminution were also removed. Next a posterior medial approach at the apex of the metaphyseal diaphyseal fracture fragment was made this was taken down to bone and the saphenous vein and nerve were protected. There were 2 completely loose cortex fragments angulated at 90? to the fracture plane in the long axis of the tibia these had no remaining soft tissue attachments and were easily retrieved with a pituitary rongeur and removed from the field. One was incarcerated at 90? within the fracture blocking reduction. Once this was completed traction was pulled through the external fixator unit to re-establish the length. The medial bar was removed to help with access and then later the lateral bar as well and traction was pulled through the calcaneal pin. Posterior medial buttress place with a 1/3 tubular plate was attempted posterior medially at the apex of the metaphyseal diaphyseal fracture however there was still some posterior sag noted and this was revised to an a to P lag screw anteriorly through the shaft posteriorly into the metaphyseal medial fragment which improved the reduction. Next the pointed reduction clamps were used to bring the Chaput fragment back proximal and medial towards the larger medial articular block. Was noted that complete reduction of the anterior articular surface was possible however this did leave a gap anteriorly in the cortex from the previously noted cortex loss that was in the soft tissues. There for maintaining a small gap anteriorly allowed the cartilage surfaces to be smooth and approximated. Once this was completed this was pinned in place with K- wires. A 2 7 lag screw was placed anterior to posterior through the Chaput fragment and a 2nd 4.0 cannulated screw from the Arthrex set was placed lateral to medial. This reduced the articular segment very well and the tibia talar joint was thoroughly inspected irrigated and visualized under motion without any catching locking or grinding. Next a 4 hole 1/3 tubular plate from the Arthrex set was placed to further buttress the more proximal part of the Chaput fragment against the metadiaphyseal junction. Two cortical screws were placed through this plate acting as a large washer. Next the 6 hole medial locking plate from the Arthrex distal tibia set was slid in a percutaneous fashion from distal to proximal who the previously opened the incision. This was positioned along the bone and pinned in place and checked on AP and lateral imaging to be in the appropriate position. Then this was approximated down to the bone with a 3.5 cortical screw followed by a 2.7 cortical screw in the articular fragment. Once this was in place the 2.7 locking screws were placed distally and the 2.7 nonlocking screw was exchanged for a locking screw. Two additional 3.5 cortical screws were spaced out appropriately in the proximal segment. Final fluoroscopic imaging was obtained in the AP mortise and lateral planes confirming appropriate hardware placement no evidence of intra-articular violation and excellent reduction of the articular surface and overall alignment. Wounds were thoroughly irrigated. At this point the tourniquet had been down for some time and hemostasis had been achieved. The wound was closed in layers with 2 O Vicryl 4 0 Monocryl and 3 0 into 0 nylon. Once the surgical incisions were closed the external fixator pins were removed and the pin sites were curetted and irrigated and then closed with a single stitch just to help with approximation. Xeroform gauze and Webril dressings were placed along with a bulky Lagunas style dressing posterior and U splint. The patient was woken from anesthesia and taken to recovery room in good condition. There no immediate complications from this procedure. All counts were correct. Complications: none Post-operative Condition: stable Disposition: PACU Plan for aftercare: Nonweightbearing left lower extremity. Elevate above the heart level 2 weeks postoperatively. Ice and elevation. Pain control. Will start Lovenox for DVT prophylaxis for 2 weeks starting postop day 1. Once incisions healed and follow up in clinic in 2 weeks will switch to aspirin. Will admit to observation for pain control overnight tonight and discharge home tomorrow.
[2019-09-26] MEDS: hydrOXYzine 50 MG/ML INJ 25 MG IM (13:17)
[2019-09-26] MEDS: HYDROMORPHONE 2 MG INJ IV ×2 (13:17→13:40)
[2019-09-26] MEDS: OXYCODONE/ACETAMINOPHEN 5/325 TABLET 1 TAB PO ×2 (13:44→14:13)
[2019-09-26] MEDS: KETOROLAC 30 MG/ML VIAL IV (13:53)
[2019-09-26] MEDS: fentaNYL 100 MCG/2 ML INJ 50 MCG IV ×2 (14:05→14:13)
--- NOTE | 2019-09-26 14:48 | SUR.PHASEI ---
Report to Yun. Pt rates pain now at 04/11. No N/V. VSS. Pt transferred to room 219 in stable condition
--- NOTE | 2019-09-26 16:05 | SUR.PREOP ---
Block start time [748] . Monitoring initiated and maintained throughout procedure. Oxygen and medications given per anesthesiologist instructions. Patient remained stable throughout procedure, no adverse reactions noted. Block end time [0755].
--- NOTE | 2019-09-26 16:29 | PT-IP ANOTE ---
Pt refused getting up, noting he still felt too drowsy to try to get to the chair. He was educated on calling for nursing in order to get up. Check on pt in AM.
[2019-09-26] MEDS: LACTATED RINGERS 1,000 ML 75 ML IV (18:12)
[2019-09-26] MEDS: AMLODIPINE 5 MG TABLET PO (18:13)
--- NOTE | 2019-09-26 18:52 | PC.NURSE ---
Addendum entered by Adriana Katz R.N. 09/26/19 21:38: Pt has had relatively uneventful evening. Med @ 2120 for discomfort w/good relief. CMS ++ to left lower leg Dsg CDI. IVF continue as per orders. Call light w/in reach, bed alarm on for pt safety. Continue w/plan of care. Original Note: Pt watching TV. Denies discomfort at this time. Left leg in cast, toes swollen but pt able to feel touch. CMS ++' IV LR infusing @ 75cc/hr in right hand via pump w/o incidence. Lungs clear, SpO2 97% RA Call light w/in reach, bed alrm on for pt safety.
[2019-09-26] MEDS: ACETAMINOPHEN 325 MG TABLET 975 MG PO (21:17)
[2019-09-26] MEDS: DOCUSATE 100 MG CAPSULE PO (21:18)
[2019-09-26] MEDS: OXYCODONE IR 10 MG TABLET PO (21:18)
[2019-09-26] MEDS: HYDROMORPHONE 0.5 MG INJ 0.2 MG IV (22:39)
[2019-09-27] MEDS: HYDROMORPHONE 0.5 MG INJ 0.2 MG IV ×2 (00:11→03:53)
[2019-09-27] MEDS: CEFAZOLIN 2 GM/100 ML FROZ.PIGGY IV (00:11)
[2019-09-27] MEDS: OXYCODONE IR 10 MG TABLET PO ×2 (00:37→03:53)
[2019-09-27] MEDS: KETOROLAC 30 MG/ML VIAL IV ×2 (02:00→11:32)
[2019-09-27] MEDS: OXYCODONE IR 5 MG TABLET PO (02:01)
--- NOTE | 2019-09-27 02:17 | PC.NURSE ---
Dr. Clarke notified at 0140 of the patient's pain level maintaining between 8-10/10 on the numeric scale. Patient is wincing, guarding and stated I can't sleep cause it hurts too much. See MAR for pain medication administration. Orders received for Toradol 30mg x1 dose and to give the Oxycodone 10mg and 5mg together.
[2019-09-27] MEDS: LACTATED RINGERS 1,000 ML 75 ML IV (02:51)
[2019-09-27 04:10] VITALS: BP 138/78; PULSE 71; RESP 19; TEMP 36.9; O2SAT 96
[2019-09-27 08:00] VITALS: BP 150/87; PULSE 77; RESP 18; TEMP 37.1; O2SAT 100
[2019-09-27] MEDS: ACETAMINOPHEN 325 MG TABLET 975 MG PO (09:18)
[2019-09-27] MEDS: DOCUSATE 100 MG CAPSULE PO (09:19)
[2019-09-27] MEDS: HYDROMORPHONE 4 MG TABLET PO (09:19)
[2019-09-27] MEDS: ENOXAPARIN 40 MG/0.4 ML SYRINGE SUBCUT (09:19)
[2019-09-27] MEDS: GABAPENTIN 300 MG CAPSULE PO (09:19)
[2019-09-27] MEDS: AMLODIPINE 5 MG TABLET PO (09:20)
--- NOTE | 2019-09-27 10:33 | CM.DANOTE ---
DCP/Assessment: Reviewed chart. Patient is a 59yr old male admitted to [facility] for ORIF of left tibia fx performed by Dr. Clarke on 09-26-19. PCP is Dr. Dai. Primary payor is [employer]. Met with patient explained CM/SW role. 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 Patient reports that he has all needed DME in the home. Patient's spouse/Chase has been primary caregiver. Patient has been primarily using w/c for last few weeks. Therapy evaluation currently pending. It is anticipated that patient might d/c home today if pain under control. Patient does not anticipate any d/c planning needs. CM team to continue to follow. P: Home when medically stable. JENNIFER Davidson Discharge Planning/Care Management CM Discharge Assessment Start: 09/27/19 10:29 Freq: Status: Active Protocol: Document 09/27/19 10:29 KJS (Rec: 09/27/19 10:32 KJS [id number]) Discharge Planning Assessment Assigned Respite Provider JENNIFER Davidson Advance Directives? No History Provided By Patient,Medical Record Prior Living Arrangements House Household Members spouse Type of transporation used prior to Relies on Others admit Comment At baseline drives, currently due to left tibia fx and repairs x2 relies on others. Independent with ADL's Patient has adopted well using w/c and walker. Is patient alert and oriented? Yes Caregiver for Another No DME Already Rented / Owned Wheelchair,FWW / Walker Barriers to Discharge No Discharge Plan Home Transportation Arrangement Spouse Whiteboard Updated in Patient Room with Yes name and ext. # of Respite Provider Review Status In Process Next Review Type Continued Stay Review Pre-Anesthesia Assessment Start: 09/21/19 14:21 Freq: Status: Active Protocol: Document 09/21/19 14:21 CAB (Rec: 09/21/19 14:28 CAB [id number]) Pre-Anesthesia Assessment Patient Information Reviewed Via Chart Review Preferred Language Gambian Hx Anesthesia Reactions unknown Hx Family Anesthesia Reaction No Hx Malignant Hyperthermia No Research Spec No alcohol intake frequency 0-2 drinks per day Smoking Status Never smoker Substance Use Type does not use Pain Present Pain Reported Musculoskeletal Symptoms Abnormal Gait,Deformity, Difficulty Walking,Joint Pain, Limited Range of Motion History of Falling (Recent or History of Yes ) Patient is completely paralyzed or No completely immobile Mental Status Oriented to own ability Is patient on oxygen? No Does patient have CANNON/SOB No Hx Sleep Apnea No CPAP/BIPAP use not prescribed Currently Taking a Beta [place] No Hx Chest Pain No Hx SOB No Hx Syncope or Dizziness No Anti-Coagulant Therapy Yes: Lovenox for DVT s/p ankle surgery-advised to hold 09/25 per surgeon Has a Behaviorist No Cardiac Testing No Hx Pacemaker/ICD No Pacemaker Rep Required? No Cardiac Clearance Received Not Applicable dysphagia No Urinary Catheter Present No Hx Urinary Self Catheterization No Diabetes No Presence of External or Internal Medical No Devices Have you traveled outside the [facility] in the last 30 days? Marital Status Lives With spouse Patient Discharge Plan Description Return Home Do You Have Any Spiritual Beliefs That No May Affect Your HC Choices? Do You Have Any Cultural Practices That No May Affect Your HC Choices? Emergency Contact Name pia townsend Emergency Contact Advance Directives? No Power of Manager Wellness No
--- NOTE | 2019-09-27 11:31 | PT.IIE ---
Current Diagnoses Displaced pilon fracture of left tibia, initial encounter for closed fracture (09/26/19) Surgery Performed Operation Date: 09/26/19 07:45 Actual Procedures p Staged ORIF of pilon Fracture of tibia, Staged removal external fixation device ankle(Left) - Macey Clarke MD Surgical History (Last Updated 09/21/19 @ 14:25 by Alia Dasilva, RN) History of ankle surgery (Acute 09/12/19) Medical History (Last Updated 09/21/19 @ 14:28 by Alia Dasilva RN) HTN (hypertension) (Acute) Physical Therapy Inpatient Evaluation/Re-Eval M1 PT/OT-IP Prior Functional Status Start: 09/27/19 10:25 Freq: NEEDED Status: Active Protocol: Document 09/27/19 11:07 AW (Rec: 09/27/19 11:31 AW [id number]) Medical Review Prior Functional Status Medical History Reviewed Yes Diet/Fluid Consistency Regular Communication WNL Mobility and Gait At baseline, pt is independent with no need for assistive device. He fell from a ladder two weeks ago and sustained a comminuted left tibial pilon fracture. He has been in external fixation since the fall and NWB LLE. He has been using a standard walker and wheelchair for most mobility since that time and crutches for stairs. Activities of Daily Living and IADL's Independent Social History Household Members spouse Living Arrangements House Number of Floors (Floors) Two Floors Number of Stairs To Enter/Railing? 5 PORSCHE with right rail ascending. Home Environment High Toilet,Walk in Shower Home Equipment Crutches,Manual Wheelchair, Shower Seat without Backrest, Grab Bars In Shower Employment Status Retired Additional Social History Comment Pt states he enters his home from the garage and into the main level. He has no need to access the basement. M2 PT-IP Current Condition Start: 09/27/19 10:25 Freq: NEEDED Status: Active Protocol: Document 09/27/19 11:07 AW (Rec: 09/27/19 11:31 AW [id number]) Physical Therapy Current Condition Current Condition Evaluation Date 09/27/19 Treatment Diagnosis ORIF left tibial pilon fracture, impaired mobility Weight Bearing Status Weight Bearing Status Non-Weight Bearing Allowed Weight Bearing Amount (enter % NWB LLE or #) (%) M3 PT-IP Subjective Start: 09/27/19 10:25 Freq: NEEDED Status: Active Protocol: Document 09/27/19 11:07 AW (Rec: 09/27/19 11:31 AW [id number]) Subjective Physical Therapy Visit Type Type Initial Evaluation Visit Start Time 10:42 Visit Stop Time 11:03 Total Visit Minutes 21 Number of CAMELID FIBER SORTER Visits 0 Physical Therapy Visit Comments Patient Comments Pt has not been out of bed since surgery, but is willing to mobilize with PT Patient Goals Pt hopes to discharge home with spouse assist Therapy Pain Assessment Pain When Pain Assessed During Mobility Pain Present Pain Present Pain Reported Location left ankle Intensity 5 Scale Used 5/10 at rest; unchanged with mobility Pain Management Techniques Apply Cold,Elevation,Re- positioning,Timing of Activity with Medications M4 PT-IP Mobility and Gait Start: 09/27/19 10:25 Freq: NEEDED Status: Active Protocol: Document 09/27/19 11:07 AW (Rec: 09/27/19 11:31 AW [id number]) PT-Bed Mobility Assessment Supine to Sit Supine to Sit Standby Assistance,Head of Bed Elevated Scooting Scooting to Edge of Bed Standby Assistance PT-Transfer Assessment Sit to and From Stand Sit to and from Stand Standby Assistance,Use of Upper Extremities Equipment Transfer Assistive Device Gait Belt,Front Wheeled Walker Transfers Transfer Destination Chair Transfer Technique pt ambulated with FWW Transfer Ability Level of Assist Standby Assistance,Use of Upper Extremities Comments Mobility Comments Pt completed supine to sit and sit to stand transfers with no more than SBA. He observed NWB LLE without need for cues. Transfer to chair was accomplished without need for verbal cues. Pt able to sequence transfer safely. Gait Assessment Gait Gait Assistance Required: Standby Assistance,Contact Guard Assist Distance (Feet) 20 Able to Maintain Weight Bearing Status Yes During Gait Assistive Devices Assistive Device Gait Belt,Front Wheeled Walker Factors Limiting Gait Function Factors Limiting Gait Function Decreased Activity Tolerance, Decreased Strength,Pain Comments Gait Comments Pt ambulated 10 feet in room using FWW CGA and another 10 feet SBA. He was able to maintain NWB LLE with minimal feedback. Stair Climbing Assessment Comments Stair Climbing Comments Pt declined stair assessment at this time. Plan to follow up at PM session. PT-Balance Assessment Sitting Balance and Reactions Static Sitting Balance Ability Normal Dynamic Sitting Balance Ability Normal Standing Balance and Reactions Static Standing Balance Ability Good Dynamic Standing Balance Ability Good Device Used FWW M5 PT-IP Objective Assessments Start: 09/27/19 10:25 Freq: NEEDED Status: Active Protocol: Document 09/27/19 11:07 AW (Rec: 09/27/19 11:31 AW [id number]) Orientation Orientation/Cognition Level of Alertness Alert Orientation Name,Day of Week,Place, Situation Language Function Ability No Deficits Noted Safety Awareness Understands Safety Issues Memory Description No Deficits Noted Gross Range of Motion Upper Extremity ROM Assessment Within Functional Limits Lower Extremity ROM Assessment Left Impaired Strength Upper Extremity Strength Assessment Within Functional Limits Lower Extremity Strength Assessment Left Impaired Comments Strength Comments BUE grossly 5/5. RLE 5/5. LLE hip flexion and knee extension 4+/5. Sensation Assessment Sensation Gross Sensation WNL Comments Sensation Comments Left toes with light touch and temperature sensation intact. M6 PT-IP Treatment Start: 09/27/19 10:25 Freq: NEEDED Status: Active Protocol: Document 09/27/19 11:07 AW (Rec: 09/27/19 11:31 AW [id number]) Physical Therapy Treatment Education Education Provided Precautions,Weight Bearing Status,Safety Other Treatments Other Treatment Performed Reviewed PT plan of care, weightbearing status, and safe use of FWW. M7 PT-IP Assessment and Plan Start: 09/27/19 10:25 Freq: NEEDED Status: Active Protocol: Document 09/27/19 11:07 AW (Rec: 09/27/19 11:31 AW [id number]) PT Summary Assessment and Plan Potential Rehabilitation Potential Excellent Status of Condition at Evaluation Evolving Summary Impairments Pain,ROM,Strength,Transfers, Gait,Activity Tolerance Assessment Summary Pt is an active 59 yo man seen for PT evaluation on POD1 following ORIF of left ankle comminuted pilon fracture. PLOF: Pt was independent in all regards prior to fall 2 weeks ago. Since then, he has used a manual wheelchair, standard walker, and crutches for all mobility secondary to NWB LLE. CLOF: Pt required no more than CGA for all mobilities including 20 feet ambulation with good attention to NWB status. Pt still needs to clear stairs, but once he does so, he will be safe to discharge home with his who has no limitations and is able to assist as needed. Goals Bed Mobility Goal Independent Transfer Goal Independent,Front Wheeled Walker Gait Goal Standby Assistance,Front Wheel Walker Gait Distance 50 Other Goals up/down 5 steps with right rail ascending NWB LLE using crutches Days to Meet Goals 1 Frequency of Treatment Frequency Of Treatment Twice a Day Treatment Plan Physical Therapy Treatment Plan Bed Mobility Training,Transfer Training,Gait Training, Therapeutic Exercise,Balance Retraining,Post Op Education, Discharge Planning,Hot or Cold Pack,Neuromuscular Re-ed, Coordination Retraining,Manual Therapy Other Recommendations and Next Treatment progress ambulation distance, Focus trial stairs Recommendations To Nursing Amount of Assist Needed Standby Assistance Discharge Recommendations PT Discharge Recommendations Home with Assistance, Outpatient PT Equipment Needed for Home Before Pt has standard walker at home Discharge . May want to consider acquiring a FWW for ease of use
[2019-09-27] MEDS: hydrOXYzine pamoate 25 MG CAPSULE PO (11:32)
[2019-09-27 12:11] VITALS: BP 149/84; PULSE 78; RESP 18; TEMP 36.6; O2SAT 98
--- NOTE | 2019-09-27 12:19 | P.DS_ITS ---
History of Present Illness History of Present Illness Date Patient Seen: 09/27/19 Time Patient Seen: 12:19 Chief complaint: [id number] ORIF LEFT TIBIA FX *OPB* Narrative: Patient is a 59-year-old male that fell off a ladder and sustained a comminuted left distal pilon fracture. The patient was placed into an external fixator for staged treatment. He returned to for his definitive procedure today. His soft tissue has resolved appropriately for internal fixation. The risks and benefits of the procedure have been discussed with the patient even opportunity to ask questions. The risks of surgery include but are not limited to infection, malunion, nonunion, persistence of pain, damage to nerves and blood vessels, posttraumatic arthritis, DVT, PE, cardiopulmonary complications and . The patient expressed a thorough understanding of the risks and be nefits of surgery and has elected to proceed. Consent was signed in the office. Discharge Providers Provider Discharge Date: 09/27/19 Primary care physician: Amaury Dai MD Consults: 09/26/19 15:43 Consult to Physical Therapy Evaluate & Treat Comment: RINA LYON Physician Instructions: Evaluate and Treat Consult to Respiratory Therapy Evaluate & Treat Comment: Physician Instructions: Evaluate and treat Discharge provider: Ailyn Muñoz PA-C Summary Hospital Course Discharge Diagnosis: s/p Staged open reduction internal fixation of left pilon fracture, left tibia and staged removal external fixation device of left ankle hypertension asthma Hospital Course: Kam was admitted for a removal of external fixation device and open reduction internal fixation of left pilon fracture with Dr. Clarke. Hospital course unremarkable. On postop day 1 patient was ready to discharge home. He was eating and voiding without difficulty or assistance. He worked with physical therapy throughout his stay. He is nonweightbearing on the left. Splint was well fitting. Lovenox for DVT prophylaxis. Patient did require Dilaudid, and Vistaril for pain control. Exam Vital Signs (past 8 hours): - 09/27/19 08:00 09/27/19 12:11 Temperature 98.8 F 97.8 F Pulse Rate 77 78 Respiratory Rate 18 18 Blood Pressure 150/87 H 149/84 H Pulse Oximetry 100 98 Oxygen Delivery Method Room Air Oxygen Flow Rate 0 Narrative Exam Narrative: Patient sitting at bedside in no acute distress. Alert and oriented x3. Calves are soft, compressible, nontender bilaterally. He is able to wiggle his toes. Brisk capillary refill. Sensation intact light touch throughout bilateral lower extremities. Splint is well fitting and CDI. He has better pain control this afternoon with Dilaudid, Tylenol, and Vistaril. Discharge Plan Discharge Plan Patient Disposition: Home Discharge comment: Take Lovenox starting postop day 1 for DVT prophylaxis. When we finished this prescription will start taking aspirin 325 mg daily and continue this until 6 weeks postoperative Discharge Med Rec/Prescriptions Prescriptions: New enoxaparin [Lovenox] 40 mg/0.4 mL syringe 40 mg SUBCUT DAILY Qty: 4 RF: 0 ondansetron HCl [Zofran] 4 mg tablet 4 mg PO Q8H PRN (Reason: nausea and vomiting) Qty: 7 RF: 1 acetaminophen 325 mg Tablet 500 mg PO Q4HR Qty: 30 RF: 0 hydromorphone 2 mg Tablet 2 mg PO Q4HR PRN (Reason: Pain, Severe (7-10)) Qty: 50 RF: 0 docusate sodium [DOK] 100 mg Capsule 100 mg PO BID Qty: 30 RF: 0 hydroxyzine HCl 25 mg tablet 25 mg PO Q4HR Qty: 40 RF: 1 Continued amlodipine [Norvasc] 5 MG tablet 5 mg PO QDAY Qty: 0 RF: 0 Dulera 100 MCG/5 MCG HFA aerosol inhaler 1 inh INH DIRECTED Qty: 0 RF: 0 docusate sodium [DOK] 100 mg Capsule 100 mg PO BID Qty: 20 RF: 0 Discontinued enoxaparin [Lovenox] 40 mg/0.4 mL Syringe 40 mg subcut DAILY 14 Days RF: 0 oxycodone 5 mg Tablet 5 mg PO Q4-6H PRN (Reason: Pain, Moderate (4-6)) Qty: 42 RF: 0 hydroxyzine HCl 25 mg tablet 25 mg PO TID PRN (Reason: nausea and vomiting) Qty: 30 RF: 0 Follow up/Referrals: Macey Clarke MD [Physician] - Amaury Dai MD [Primary Care Provider] - Discharge Orders: Discharge (Order); Ordered 09/27/19 Ordered By: Ailyn Muñoz Provider Discharge Instructions Other treatments: Plan for aftercare: Nonweightbearing left lower extremity. Elevate above the heart level 2 weeks postoperatively. Ice and elevation. Pain control. Will start Lovenox for DVT prophylaxis for 2 weeks starting postop day 1. Once incisions healed and follow up in clinic in 2 weeks will switch to aspirin. Skin/Wound/Dressing Care Report to your healthcare provider any signs of infection, such as:: chills, fever and increased pain Dressing: leave splint in place until appointment Visit Report/Discharge Packet Instructions: DI for Open Reduction Internal Fixation Surgery, Hydromorphone Stand Alone Forms: Surgery Discharge Discharge Data Primary Care Provider: Amaury Dai Attending Provider: Macey Clarke Discharges patient from system. Discharge Date/Time: 09/27/19 14:09 Quality VTE Deep Vein Thrombosis/Pulmonary Embolism Present on Admission: No
--- NOTE | 2019-09-27 12:53 | PT.IPTN ---
Current Diagnoses Displaced pilon fracture of left tibia, initial encounter for closed fracture (09/26/19) Surgery Performed Operation Date: 09/26/19 07:45 Actual Procedures p Staged ORIF of pilon Fracture of tibia, Staged removal external fixation device ankle(Left) - Macey Clarke MD Physical Therapy Treatment Note M2 PT-IP Current Condition Start: 09/27/19 10:25 Freq: NEEDED Status: Active Protocol: Document 09/27/19 11:07 AW (Rec: 09/27/19 11:31 AW [id number]) Physical Therapy Current Condition Current Condition Evaluation Date 09/27/19 Treatment Diagnosis ORIF left tibial pilon fracture, impaired mobility Weight Bearing Status Weight Bearing Status Non-Weight Bearing Allowed Weight Bearing Amount (enter % NWB LLE or #) (%) M3 PT-IP Subjective Start: 09/27/19 10:25 Freq: NEEDED Status: Active Protocol: Document 09/27/19 12:27 SP (Rec: 09/27/19 13:22 SP [id number]) Subjective Physical Therapy Visit Type Type Treatment Note Visit Start Time 12:27 Visit Stop Time 12:53 Total Visit Minutes 26 Notes Pt agreeble to PT today. Number of SPACE CONTROL AGENT Visits 1 Physical Therapy Visit Comments Patient Comments Pt wanting to complete some gait with FWW and trial stairs to be able to possible go home today. Therapy Pain Assessment Pain When Pain Assessed During Mobility Pain Present Pain Present Pain Reported Location Left shoulder Intensity 5 Scale Used Numeric (1 - 10) M4 PT-IP Mobility and Gait Start: 09/27/19 10:25 Freq: NEEDED Status: Active Protocol: Document 09/27/19 12:27 SP (Rec: 09/27/19 13:22 SP [id number]) PT-Transfer Assessment Sit to and From Stand Sit to and from Stand Standby Assistance,Use of Upper Extremities Equipment Transfer Assistive Device Gait Belt,Front Wheeled Walker ,Axillary Crutches Transfers Transfer Destination Chair,Wheelchair Transfer Technique pt ambulated with FWW Transfer Ability Level of Assist Standby Assistance,Use of Upper Extremities Comments Mobility Comments Pt was able to compete sit <> stand with no more than SBA using FWW and crutches. He is observed maintaining NWB LLE without needed cues. Pt was able to complete transfer side chair to w/c using BUE and FWW without verbal cues for maintaining NWB and able to sequence transfer safely. Gait Assessment Gait Gait Assistance Required: Standby Assistance,Contact Guard Assist Distance (Feet) 144 Able to Maintain Weight Bearing Status Yes During Gait Assistive Devices Assistive Device Gait Belt,Front Wheeled Walker Factors Limiting Gait Function Factors Limiting Gait Function Decreased Activity Tolerance, Decreased Strength,Pain Comments Gait Comments Pt was able to ambulate 20 ft in room and 57 ft x2 distances in hallway using FWW requiring SBA and follow with w/c for decreased endurance and strength. Pt was able to maintain NWB LLE with minimal feedback for pacing. Stair Climbing Assessment Evaluation Level of Assist On Stairs Contact Guard Assistance,1 Person Assistance Devices Stair Climbing Assistive Devices Axillary Crutches,Right Railing Technique/Endurance Stair Climbing Direction Ascend and Descend Stair Climbing Technique Step to Step Number of Steps Climbed 3 Stair Climbing Set # Repetitions (reps) 2 Comments Stair Climbing Comments Pt was able to complete stair management using R HR and crutch in LUE ascending hop step RLE only while maintaining NWB LLE. Noted little RLE knee bend but able complete into extension upon WB. Cued for upright posture to allow for easier transition RLE advance onto step. No LOB or deviations noted. PT-Balance Assessment Sitting Balance and Reactions Static Sitting Balance Ability Normal Dynamic Sitting Balance Ability Normal Standing Balance and Reactions Static Standing Balance Ability Good Dynamic Standing Balance Ability Good Device Used FWW M5 PT-IP Objective Assessments Start: 09/27/19 10:25 Freq: NEEDED Status: Active Protocol: Document 09/27/19 11:07 AW (Rec: 09/27/19 11:31 AW [id number]) Orientation Orientation/Cognition Level of Alertness Alert Orientation Name,Day of Week,Place, Situation Language Function Ability No Deficits Noted Safety Awareness Understands Safety Issues Memory Description No Deficits Noted Gross Range of Motion Upper Extremity ROM Assessment Within Functional Limits Lower Extremity ROM Assessment Left Impaired Strength Upper Extremity Strength Assessment Within Functional Limits Lower Extremity Strength Assessment Left Impaired Comments Strength Comments BUE grossly 5/5. RLE 5/5. LLE hip flexion and knee extension 4+/5. Sensation Assessment Sensation Gross Sensation WNL Comments Sensation Comments Left toes with light touch and temperature sensation intact. M6 PT-IP Treatment Start: 09/27/19 10:25 Freq: NEEDED Status: Active Protocol: Document 09/27/19 12:27 SP (Rec: 09/27/19 13:22 SP [id number]) Physical Therapy Treatment Education Education Provided Precautions,Weight Bearing Status,Safety Other Treatments Other Treatment Performed LE strengthening, endurance upright using FWW. M7 PT-IP Assessment and Plan Start: 09/27/19 10:25 Freq: NEEDED Status: Active Protocol: Document 09/27/19 12:27 SP (Rec: 09/27/19 13:22 SP [id number]) PT Summary Assessment and Plan Potential Rehabilitation Potential Excellent Status of Condition at Evaluation Evolving Summary Impairments Pain,ROM,Strength,Transfers, Gait,Activity Tolerance Assessment Summary Pt was able to complete all mobility SBA using FWW, gait approx 144 ft total and stair managment using RHR and 1 crutch in RUE WB only RLE with good demonstration NWB LLE CGA. Pt was able to manually propel wheelchair approx 100 ft x2 including turns BLE supported on foot rests, has standard walker and crutches for all mobility secondary to NWB LLE at home already prepared. CLOF: Pt required no more than SBA for all mobilities including 144 feet ambulation with good attention to NWB status and CGA during stair mgt. Pt complete stair mgt with good safety to discharge home with his who has no limitations and is able to assist as needed. Pt is able to safely discharge when medically cleared, discussed with nursing. Goals Bed Mobility Goal Independent Transfer Goal Independent,Front Wheeled Walker Gait Goal Standby Assistance,Front Wheel Walker Gait Distance 50 Other Goals up/down 5 steps with right rail ascending NWB LLE using crutches Days to Meet Goals 1 Frequency of Treatment Frequency Of Treatment Twice a Day Treatment Plan Physical Therapy Treatment Plan Bed Mobility Training,Transfer Training,Gait Training, Therapeutic Exercise,Balance Retraining,Post Op Education, Discharge Planning,Hot or Cold Pack,Neuromuscular Re-ed, Coordination Retraining,Manual Therapy Other Recommendations and Next Treatment progress ambulation distance, Focus trial stairs Recommendations To Nursing Amount of Assist Needed Standby Assistance Discharge Recommendations PT Discharge Recommendations Home with Assistance, Outpatient PT Equipment Needed for Home Before Pt has standard walker at home Discharge . May want to consider acquiring a FWW for ease of use
--- NOTE | 2019-09-27 14:04 | PC.NURSE ---
Pt is dressed and ready for discharge home with Spouse. IV has been removed. Went over d/c instructions with Pt and Spouse-discussed d/c meds, time of last dose, reviewed stroke education, signs and symptoms of infection, elevation and icing as able to reduce swelling, calling MD or coming to ED if swelling to leg or foot increased and causes color change to toes, drinking plenty of fluids to prevent constipation or dehydration, and following up as scheduled. Pt denies further questions and was discharged out via w/c by Student RN to POV with Spouse and all belongings.
== END 2019-09-27 14:09 | disposition home or self-care (01) ==
LOC: OR 06:07 → AC 06:09
PROVIDERS: PCP Internal Medicine; Visit Provider Orthopaedic Surgery Foot and Ankle Surgery
PROC: (CPT 27827; principal; 2019-09-26 07:45)
DX: S82.872A Displaced pilon fracture of left tibia, initial encounter for closed fracture (principal); G89.18 Other acute postprocedural pain; W11.XXXA Fall on and from ladder, initial encounter
CPT/HCPCS: 27827; 20694; 64445; 73610; 76000; 97116; 97162; 97530; J0690; J1100; J1170; J1650; J1885; J2250; J2405; J2704; J3010; J3410

== ENCOUNTER → 2020-06-19 16:29 | Outpatient (CLI) | payer OTHER, SELFPAY ==
[2019-09-26 16:00] VITALS: BMI 30.5
--- NOTE | 2020-06-19 16:32 | DI.RAD.S_ITS ---
PROCEDURE: XR WRIST LT MIN 3V INDICATIONS: LT WRIST INJURY TECHNIQUE: 3 views of the wrist were acquired. COMPARISON: None. FINDINGS: Bones: Subacute appearing distal radial impacted metaphyseal fractures present with no significant angulation. Mild 1st CMC joint degeneration. Scaphoid view: Not requested. Soft tissues: No suspicious soft tissue calcifications. IMPRESSION: Subacute appearing impacted distal radial metaphyseal fracture. Dictated by: Luis CHEUNG Interpreted: Maxwell Zuluaga MD on 06/19/2020 at 16:59 Approved by: Maxwell Zuluaga M.D. on 06/19/2020 at 17:21
== END ==
PROVIDERS: PCP Internal Medicine; Referring Provider Internal Medicine; Visit Provider Internal Medicine
DX: S59.202A Unspecified physeal fracture of lower end of radius, left arm, initial encounter for closed fracture (principal); M18.12 Unilateral primary osteoarthritis of first carpometacarpal joint, left hand; X58.XXXA Exposure to other specified factors, initial encounter
CPT/HCPCS: 73110

== ENCOUNTER → 2021-01-30 09:57 | Outpatient (CLI) | payer OTHER, SELFPAY ==
[2019-09-26 16:00] VITALS: BMI 30.5
[2021-01-30] MEDS: COVID-19 VACC #1, MRNA(MOD) 100 MCG/0.5 ML VIAL IM (10:07)
== END ==
PROVIDERS: PCP Internal Medicine; Visit Provider Internal Medicine
DX: Z23 Encounter for immunization (principal)
CPT/HCPCS: 0011A; 91301

== ENCOUNTER → 2021-02-27 10:01 | Outpatient (CLI) | payer OTHER, SELFPAY ==
[2019-09-26 16:00] VITALS: BMI 30.5
[2021-02-27] MEDS: COVID-19 VACC #2, MRNA(MOD) 100 MCG/0.5 ML VIAL IM (10:29)
== END ==
PROVIDERS: PCP Internal Medicine; Visit Provider Internal Medicine
DX: Z23 Encounter for immunization (principal)
CPT/HCPCS: 0012A; 91301

== ENCOUNTER 2021-06-08 12:32 | Emergency (ER) | payer OTHER, SELFPAY ==
[2019-09-26 16:00] VITALS: BMI 30.5
[2021-06-08] VITALS (8 sets, daily range): BP systolic 139–176; BP diastolic 67–88; PULSE 54–72; RESP 8–14; TEMP 36.3; O2SAT 93–97; BMI 30.8
[2021-06-08 13:56] LABS: Add Manual Diff / Slide Review NO; Basophils Absolute Auto 100 /uL (0-100); Basophils Percent Auto 0.9 % (0-2); Eosinophils Absolute Auto 200 /uL (0-450); Eosinophils Percent Auto 2.8 % (2-4); Hematocrit 45.1 % (41-53); Hemoglobin 15.7 g/dL (13.5-17.5); Lymphocytes Absolute Auto 1600 /uL (1100-4500); Lymphocytes Percent Auto 24.8 % (25-40); Mean Corpuscular HGB Conc 34.8 % (30-36); Mean Corpuscular Hemoglobin 33.7 PG (26-34); Mean Corpuscular Volume 96.8 fL (80-100); Monocytes Absolute Auto 700 /uL (0-900); Monocytes Percent Auto 10.3 % (3-14); Neutrophils Absolute Auto 4000 /uL (1500-7000); Neutrophils Percent Auto 61.2 % (50-75); Platelet Count 216 X10^3/uL (150-400); Red Blood Cell Count 4.66 X10^6/uL (4.5-5.9); Red Cell Distribution Width 13.3 % (11.6-14.8); White Blood Cell Count 6.5 X10^3/uL (4.5-11.0)
[2021-06-08 14:05] LABS: Alanine Aminotransferase 30 IU/L (<50); Albumin 4.2 g/dL (3.5-5.0); Albumin Globulin Ratio 1.3 (1.0-2.8); Alkaline Phosphatase 56 U/L (38-126); Aspartate Aminotransferase 28 IU/L (17-59); Bilirubin Total 0.7 mg/dL (0.2-1.3); Blood Urea Nitrogen 13 mg/dL (9-20); Calcium 9.5 mg/dL (8.4-10.2); Carbon Dioxide 26 mmol/L (22-32); Chloride 102 mmol/L (98-107); Estimated Glomerular Filt Rate > 60.0 mL/min (>60); Globulin 3.3 g/dL (1.7-4.1); Glucose 97 mg/dL (80-110); HEMOLYSIS < 15 (0-50); Potassium 4.2 mmol/L (3.4-5.1); Sodium 136 mmol/L (137-145); Total Protein 7.5 g/dL (6.3-8.2)
--- NOTE | 2021-06-08 15:09 | ED.GIBLEED ---
HPI - GI Bleed General Chief complaint: GI Bleed Stated complaint: rectal bleeding Time Seen by Provider: 06/08/21 12:36 Source: patient Mode of arrival: Ambulatory Limitations: no limitations History of Present Illness HPI Narrative: 61-year-old male nonsmoker with history of hypertension presents with a chief complaint of painless bright red bleeding per rectum for the past 2 weeks. He denies any nausea, vomiting or abdominal pain. He does not take blood thinners. He is not dizzy nor weak or lightheaded. He denies any diaphoresis or near syncope. He has had no chest pain or shortness of breath. He states that he has had multiple episodes, nearly every day and largely with bowel movements. He denies constipation or pain with bowel movement. He denies any dark and tarry stool Related Data Home Medications Medication Instructions Recorded Confirmed amlodipine 5 mg tablet (Norvasc) 5 mg PO QDAY #0 09/04/16 09/26/19 mometasone-formoterol HFA 100 1 inh INH DIRECTED #0 09/04/16 09/26/19 mcg-5 mcg/actuation aerosol inhaler (Dulera) Previous Rx's Medication Instructions Recorded docusate sodium 100 mg capsule 100 mg PO BID #20 cap 09/13/19 (DOK) enoxaparin 40 mg/0.4 mL 40 mg SUBCUT DAILY #4 ml 09/26/19 subcutaneous syringe (Lovenox) ondansetron HCl 4 mg tablet 4 mg PO Q8H PRN #7 tab 09/26/19 (Zofran) acetaminophen 325 mg tablet 500 mg PO Q4HR #30 tab 09/27/19 docusate sodium 100 mg capsule 100 mg PO BID #30 cap 09/27/19 (DOK) hydromorphone 2 mg tablet 2 mg PO Q4HR PRN #50 tab 09/27/19 hydroxyzine HCl 25 mg tablet 25 mg PO Q4HR #40 tab 09/27/19 pantoprazole 40 mg tablet,delayed 40 mg PO DAILY #30 tab 06/08/21 release (Protonix) Allergies Allergy/AdvReac Type Severity Reaction Status Date / Time No Known Drug Allergies Allergy Verified 06/08/21 12:50 Review of Systems Review of Systems Narrative: GENERAL: Denies chills, fatigue, malaise, fever, sweats. HEENT: Denies sinus pain, ear pain, sore throat, difficulty swallowing, dizziness. RESPIRATORY: Denies dyspnea, cough, wheezing, hemoptysis, sputum. CARDIOVASCULAR: Denies chest pain, palpitations, orthopnea, edema, GASTROINTESTINAL: See HPI : Denies dysuria, frequency, incontinence, hematuria, urinary retention. MUSCULOSKELETAL: denies weakness, joint pain, or bony pain SKIN: Denies rash, skin lesions, or other NEUROLOGIC: Denies weakness, headache, numbness, change in speech, confusion, seizures, incoordination. PSYCHIATRIC: No concerning psychosocial issues. 12 point review of systems is negative except for those stated above Patient History Medical History HTN (hypertension) Surgical History History of ankle surgery (09/12/19) Social History household members: spouse Smoking Status: Never smoker Smoking Status: Never smoker alcohol intake frequency: 3 or more drinks per day Alcohol type: beer Substance Use Type: does not use Exam Narrative Exam Narrative: GENERAL: [61] year old patient appears stated age. Well-developed patient, in mild distress. HEAD: Atraumatic. Normocephalic. EYES: Pupils equal round and reactive. Extraocular motions intact. No scleral icterus. No injection or drainage. ENT: Nose without bleeding, purulent drainage. Throat without erythema, tonsillar hypertrophy or exudate. Airway patent. NECK: Trachea midline. Non tender CARDIOVASCULAR: Regular rate and rhythm without murmurs, gallops, or rubs. RESPIRATORY: Clear to auscultation. Breath sounds equal bilaterally. No wheezes, rales, or rhonchi. GASTROINTESTINAL: Abdomen soft, non-tender, nondistended. RECTAL: No pain, no hemorrhoid or fissure. Heme weakly positive on hemoccult card. EXTREMITIES: No edema or joint tenderness. BACK: Nontender without deformity or crepitance. No flank tenderness. NEURO: AOx3. SKIN: No rash or erythema of visible areas Initial Vital Signs Initial Vital Signs: Vital Signs Temperature 97.3 F L 06/08/21 12:45 Pulse Rate 72 06/08/21 12:45 Respiratory Rate 14 06/08/21 12:45 Blood Pressure 170/88 H 06/08/21 12:45 Pulse Oximetry 97 06/08/21 12:45 Course Orders Ordered: ED Orders 06/08/21 12:50 Complete Blood Count AUTO DIFF Stat Comprehensive Metabolic Panel Stat Type and Screen Stat 06/08/21 12:59 EKG-12 Lead Stat Vital Signs Vital signs: Vital Signs - 8 hr 06/08/21 12:45 06/08/21 12:47 06/08/21 13:00 Temperature 97.3 F L Pulse Rate 72 59 L 58 L Respiratory Rate 14 Blood Pressure 170/88 H 176/79 H Pulse Oximetry 97 97 94 06/08/21 13:30 06/08/21 13:31 06/08/21 14:00 Temperature Pulse Rate 61 59 L 59 L Respiratory Rate 8 L Blood Pressure 139/67 146/80 H Pulse Oximetry 94 93 95 06/08/21 14:30 Temperature Pulse Rate 55 L Respiratory Rate 14 Blood Pressure 144/80 H Pulse Oximetry 95 MDM - GI Bleed Lab Data Result diagrams: 06/08/21 12:50 06/08/21 12:50 Labs: Lab Results 06/08/21 06/08/21 06/08/21 Range/Units 12:50 12:50 12:50 WBC 6.5 (4.5-11.0) X10^3/uL RBC 4.66 (4.5-5.9) X10^6/uL Hgb 15.7 (13.5-17.5) g/dL Hct 45.1 (41-53) % MCV 96.8 (80-100) fL MCH 33.7 (26-34) PG MCHC 34.8 (30-36) % RDW 13.3 (11.6-14.8) % Plt Count 216 (150-400) X10^3/uL Neut % (Auto) 61.2 (50-75) % Lymph % (Auto) 24.8 L (25-40) % [place] % (Auto) 10.3 (3-14) % Eos % (Auto) 2.8 (2-4) % Baso % (Auto) 0.9 (0-2) % Neut # (Auto) 4000 (1205-1224) /uL Lymph # (Auto) 1600 (3313-8871) /uL [place] # (Auto) 700 (0-900) /uL Eos # (Auto) 200 (0-450) /uL Baso # (Auto) 100 (0-100) /uL Sodium 136 L (137-145) mmol/L Potassium 4.2 (3.4-5.1) mmol/L Chloride 102 (98-107) mmol/L Carbon Dioxide 26 (22-32) mmol/L BUN 13 (9-20) mg/dL Creatinine 0.81 (0.66-1.25) mg/dL Estimated GFR > 60.0 (>60) mL/min BUN/Creatinine Ratio 16.0 (6-22) Glucose 97 (80-110) mg/dL Calcium 9.5 (8.4-10.2) mg/dL Total Bilirubin 0.7 (0.2-1.3) mg/dL AST 28 (17-59) IU/L ALT 30 (<50) IU/L Alkaline Phosphatase 56 (38-126) U/L Total Protein 7.5 (6.3-8.2) g/dL Albumin 4.2 (3.5-5.0) g/dL Globulin 3.3 (1.7-4.1) g/dL Albumin/Globulin Ratio 1.3 (1.0-2.8) Blood Type B Positive Antibody Screen Negative [facility] Narrative Medical decision making narrative: Patient has had painless bright red bleeding per rectum for 2 weeks. He has a very reassuring physical exam, vitals and labs are quite stable. He has minimal, low weekly heme-positive stool on exam. There is a very low likelihood of any life-threatening source of bleeding. Patient is tolerating orals without difficulty. I question a small diverticular bleed but have strongly recommended patient follow closely with his primary care provider as he will likely need pain endoscopy. He has been given return precautions and questions have been answered to his apparent satisfaction Discharge Plan Departure Patient Disposition: Home Clinical Impression: Lower gastrointestinal hemorrhage Instructions: Gastrointestinal Bleeding Activity Restrictions/Additional Instructions: *You have been diagnosed with [lower GI bleed. Your physical exam, vital signs and lab work today are very reassuring] *What to do: *Please continue to take your regular medications as directed. [x ] New medication prescriptions sent to your pharmacy: [[facility] ] [ New medication written as a paper prescription [ ] No new medications given * please follow-up with [facility]. Call them Thursday morning and let them know you were seen in the emergency department and we asked that you were seen in follow-up *If you do not have a primary care provider please contact the [facility] Resource line at [phone]. They will ask some questions about your medical history and help get you set up with a doctor in the community. *Return to Emergency Department if you should have any new, worsening or concerning symptoms, such as [fever greater than 101 F, shaking chills, worsening pain, persistent vomiting or other bothersome symptoms] Prescriptions: New pantoprazole [Protonix] 40 mg tablet,delayed release (DR/EC) 40 mg PO DAILY Qty: 30 RF: 0 No Action amlodipine [Norvasc] 5 MG tablet 5 mg PO QDAY Qty: 0 RF: 0 Dulera 100 MCG/5 MCG HFA aerosol inhaler 1 inh INH DIRECTED Qty: 0 RF: 0 docusate sodium [DOK] 100 mg Capsule 100 mg PO BID Qty: 20 RF: 0 enoxaparin [Lovenox] 40 mg/0.4 mL syringe 40 mg SUBCUT DAILY Qty: 4 RF: 0 ondansetron HCl [Zofran] 4 mg tablet 4 mg PO Q8H PRN (Reason: nausea and vomiting) Qty: 7 RF: 1 acetaminophen 325 mg Tablet 500 mg PO Q4HR Qty: 30 RF: 0 hydromorphone 2 mg Tablet 2 mg PO Q4HR PRN (Reason: Pain, Severe (7-10)) Qty: 50 RF: 0 docusate sodium [DOK] 100 mg Capsule 100 mg PO BID Qty: 30 RF: 0 hydroxyzine HCl 25 mg tablet 25 mg PO Q4HR Qty: 40 RF: 1 Referrals: Laura Cervantes MD [Physician] - Amaury Dai MD [Primary Care Provider] -
== END 2021-06-08 15:35 | disposition home or self-care (01) ==
PROVIDERS: Emergency Provider Emergency Medicine; PCP Internal Medicine
DX: K92.2 Gastrointestinal hemorrhage, unspecified (principal)
CPT/HCPCS: 36415; 80053; 85025; 86850; 86900; 86901; 93005; 99283; 99284

== ENCOUNTER 2023-07-17 13:16 | Day surgery (SDC) | payer OTHER, SELFPAY ==
[2019-09-26 16:00] VITALS: BMI 30.5
[2023-07-13 15:27] VITALS: BMI 31.5
--- NOTE | 2023-07-17 | PATH_ITS ---
[facility] Accession Number: [id number] No. of containers..01 Tissue . 01 Material submitted: . ankle - LEFT ANKLE SINUS TRACT . 01 Diagnosis: Left Ankle, Biopsy: Skin and soft tissue fragments with scar, inflammation with hemosiderin deposition, granulation tissue formation, and reactive changes. . Note: The findings are nonspecific. Clinicopathological correlation is advised. MRV 07/24/2023 1632 Local . 01 Comment: The histologic material was reviewed with Dr. Alex Bradford, who concurs. . 01 Electronically signed: . Vesta Galloway MD, Dermatopathologist NPI- [id number] . 01 Gross description: . The specimen is received in formalin labeled with the patient's name, , and sinus left ankle tract, and consists of multiple peralta soft tissue fragments with and without skin aggregating to 5.8 x 3.9 x 1.7 cm. The cutaneous surface is diffusely pale peralta and roughened. Sectioning reveals a red-brown to peralta cut surface with no distinct sinus tract grossly identified. Sports Medicine Coordinator sections are submitted in cassettes A1-A2. ([id number]) /[facility] 07/22/2023 0352 Local . 01 Pathologist provided ICD-10: R23.9 . 01 CPT . 995534 Specimen Comment: A courtesy copy of this report has been sent to [phone] Performed at: 01 [facility] [address] [place] [address], [place], [place] [id number] MD Herbert Guerrero MD Phone: [phone]
--- NOTE | 2023-07-17 | PATH_ITS ---
[facility] Accession Number: [id number] No. of containers..01 Tissue . 01 Material submitted: . bone - LEFT ANKLE BONE . 01 Diagnosis: Bone and Soft Tissue, Left Ankle, Biopsy: Fragments of viable cortical/trabecular bone with reactive changes and focal acute inflammation of marrow. Fragments of connective tissue with fibrosis, acute and chronic inflammation, and pigmented macrophages consistent with old hemorrhage. FORMERLY [facility], [facility] 07/24/2023 1445 Local . 01 Electronically signed: . Laura Rene MD, Pathologist NPI- [id number] . 01 Gross description: . The specimen is received in formalin labeled with the patient's name, , and left ankle bone biopsy, and consists of multiple fragments of peralta, hard osseous tissue aggregating to 2.5 x 2.2 x 0.6 cm. The largest fragments are sectioned, and the specimen is submitted entirely in cassettes A1-A3 following decalcification. ([id number]) /FRR 07/22/2023 0350 Local . 01 Pathologist provided ICD-10: M19.92 . 01 CPT . 132835 Performed at: 01 [facility] [address] [place] [address], [place], [place] [id number] MD Herbert Guerrero MD Phone: [phone]
--- NOTE | 2023-07-17 | DI.RAD.S_ITS ---
PROCEDURE: XR ANKLE LT 2V INDICATIONS: LT ANKLE SCREW REMOVED TECHNIQUE: 2 intraoperative fluoroscopic spot films were obtained COMPARISON: [facility], CR, XR ANKLE LT MIN 3V, 09/26/2019, 9:14. FINDINGS: There has been interval removal distal tibial hardware. Old healed fracture with bridging callus and periosteal reaction. No retained hardware present. IMPRESSION: 1. Fluoroscopic guidance Approved by: Dao Gama M.D. on 07/17/2023 at 17:40
[2023-07-17 13:46] VITALS: BP 143/81; PULSE 76; RESP 16; TEMP 36.4; O2SAT 96; BMI 31.5
[2023-07-17] MEDS: LACTATED RINGERS 1,000 ML 42 ML IV ×2 (14:01→16:20)
--- NOTE | 2023-07-17 15:09 | P.HP_ITS ---
History of Present Illness History of Present Illness Date Patient Seen: 07/17/23 Time Patient Seen: 15:09 Chief complaint: Left Hardware Removal Narrative: 63-year-old male status post staged fixation open reduction internal fixation left tibial pilon fracture 09/26/2019 at [facility]. He is had persistent medial swelling over the last few years and he saw dermatology and dried antibiotic and steroid cream without improvement. He is not had fevers chills nausea or vomiting. He also finished antibiotic prescription last week and noted no changes. He endorses pain in the anterior ankle with dorsiflexion but no new injuries [facility] Medical History Asthma High cholesterol HTN (hypertension) Surgical History History of ankle surgery (09/12/19) Social History household members: spouse Smoking Status: Never smoker alcohol intake: current Meds Home Medications and Allergies Home Medications Medication Instructions Recorded Confirmed Type amlodipine 5 mg tablet (Norvasc) 5 mg PO QDAY ##0 09/04/16 07/17/23 History levothyroxine 125 mcg tablet 125 mcg PO DAILY 07/13/23 07/17/23 History lisinopril 40 mg tablet 40 mg PO DAILY 07/13/23 07/17/23 History metoprolol succinate 100 mg 100 mg PO DAILY 07/13/23 07/17/23 History tablet,extended release 24 hr Allergies Allergy/AdvReac Type Severity Reaction Status Date / Time No Known Drug Allergies Allergy Verified 07/13/23 16:01 Review of Systems Review of Systems Narrative: No fevers chills nausea or vomiting. 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 ROS: Yes All systems reviewed with the patient and are negative except as otherwise documented Exam Vital Signs (past 8 hours): - 07/17/23 13:46 Temperature 97.6 F Pulse Rate 76 Respiratory Rate 16 Blood Pressure 143/81 H Pulse Oximetry 96 Oxygen Delivery Method Room Air Oxygen Delivery Method Room Air Narrative Exam Narrative: Alert oriented male in no acute distress Heart regular rate and rhythm Lungs clear to auscultation bilaterally 8 full weight-bearing no assistive devices left lower extremity demonstrates normal alignment range of motion strength and stability with medial swelling and a skin reaction with darkening but no erythema there is a soft compressible area above the medial malleolus no drainage. No obvious fluctuance. Healed anterior lateral incision without reaction. Palpable dorsalis pedis pulse. No tenderness to palpation. Decreased dorsiflexion Objective Imaging Left ankle x-rays 06/05/2023: My impression: Three views of the left ankle AP bilateral weight-bearing left mortise left lateral demonstrate healed tibial pilon fracture with intact hardware medial and anterior lateral plates. No evidence of loosening. Medial soft tissue swelling. Posttraumatic tibiotalar arthritis with joint space narrowing spurring and sclerosis. Valgus ankle arthritis the single view of the AP right ankle Assessment & Plan Assessment and plan (1) Painful orthopaedic hardware: Status: Acute (2) Impingement of left ankle joint: Status: Acute Plan Posttraumatic arthritis left ankle after tibial pilon fracture. Has a skin reaction medial thought to be inflammatory or possible metal allergy versus low- grade infection. Now is having some increased swelling. No systemic symptoms. I have recommended hardware removal and bone biopsy. Plan is to remove all the hardware. Discussed risk of incomplete hardware removal discussed risks of need for additional surgery or antibiotics. Postop he will be in a splint for 2 weeks to allow the incisions to heal and then weight-bearing in a boot until incisions are healed. Patient understands and agrees with the plan. Informed consent was signed. Quality VTE Deep Vein Thrombosis/Pulmonary Embolism Present on Admission: No
--- NOTE | 2023-07-17 15:27 | P.OP_ITS ---
Operative Date/Time/Diagnoses Date of procedure: 07/17/23 Pre-op diagnosis: Ankle impingement syndrome, posttraumatic arthritis left ankle, chronic osteomyelitis left tibia, painful orthopedic hardware Post-op diagnosis: same Procedure & Clinicians Procedure: 1. Removal internal fixation ankle hardware, multiple sites extensive removal 2 plates and multiple screws from separate medial and anterior lateral incisions. CPT code 57397. 2. Debridement of bone initial 20 sq cm or less CPT code 75948 left, bone biopsy 3. Excision bone spur tibia CPT code 13330, left Same procedure as scheduled: Yes Indications: Patient is a 63-year-old male status post staged fixation of left tibial pilon fracture in 2019. He is had persistent skin reaction medial swelling concern for hardware reaction versus low-grade chronic osteomyelitis. He has been indicated for hardware removal and bone biopsy. This is an extensive hardware removal that will include a medial tibial plate multiple screws and separate anterior lateral incision with plate and screw removal through multiple incisions. In addition he has visible bone growth over the proximal aspect of the medial tibial plate. He has anterior ankle impingement symptoms and a large anterior tibial bone spur that will be removed for his impingement and we will complete bone debridement and biopsy. He understands that based on intraoperative cultures he may require additional treatment surgery or antibiotics. We discussed risks including need for additional surgery and possible incomplete hardware removal. Patient understands and agrees with the plan. Surgical consent was signed. The risks and benefits of the procedure have been discussed with the patient and given the opportunity to ask questions. The risks of surgery include but are not limited to infection, incomplete hardware removal, persistence of pain, damage to nerves and blood vessels, posttraumatic arthritis, DVT, PE, cardiopulmonary complications and . The patient expressed a thorough understanding of the risks and benefits of surgery and has elected to proceed. Consent was signed. Surgeon: Macey Clarke Tree Chipper: Eloy Barnhart Anesthesia Type: General and Local Operative Notes Findings: Scar thickened swollen tissue the medial malleolus no active drainage. On incision there is what appears to be a sinus track for the distal end of the medial tibial plate. There is no gross purulence. No hardware loosening. Proximally the medial tibial plate is overgrown with bone to the 3rd screw this is removed with a osteotome to free up the screw and plates. After removal of the medial plate separate incision is made anterior laterally for the anterior lateral plate and independent lag screws. Again the anterior plate is overgrown with bone distally osteotome is used to expose this and expose the plate screws these were then removed. The free screws are 3 and are completely encased in bone. C-arm is used to identify these and osteotome used to expose them and they are removed for complete hardware removal. Separately attention was turned distally for the anterior tibial spur resection using an osteotome and fluoroscopic guidance. Medially curette and rongeur were used for bone biopsy at the level of the distal tibial plate in the area of the suspected sinus Closure Type: primary Specimen(s): other (Bone sent for culture and pathology) Prosthetic devices, grafts, tissues, transplants, or devices: All hardware was removed including medial tibial plate and screws. Anterior lateral tibial plate and screws and 3 free distal tibial screws Estimated Blood Loss (mL): 50 Blood products transfused: none Tourniquet time (min): 65 Procedure in detail: Patient is seen in the preoperative area the site of surgery marked informed consent confirmed. The patient brought back to the operating room by the anesthesia team positioned supine on operative table. General anesthetic was administered. A well-padded thigh tourniquet was applied to the left lower extremity. The left lower extremity was prepped and draped in standard sterile fashion. A formal time-out procedure was performed confirming the patient's side and site of surgery. Antibiotics were held for intraoperative cultures. Exsanguination was completed the tourniquet elevated. Attention was turned to the left lower extremity. The previous medial incision was reopened. On opening the distal end of the incision where most of the skin reaction was did appear boggy concerning for a sinus but there was no gross purulence. The scalpel was used to ellipsed size the suspected sinus this was sent for pathology. The medial tibial plate was exposed. All the tissue was extremely thickened and scarred. The plate and screws were exposed. Proximally an osteotome was necessary to expose the proximal 3 screws as the plate was overgrown with bone. Once this was completed screwdriver was used to remove the shaft 3.5 screws and the distal 3 2.7 screws. And the plate was removed the rongeur was used to remove bony prominences. A curette was used to take bone biopsy at the site of the distal screw holes in the distal tibia as well as an osteotome to gain access to this area and send the deep bone biopsy to cultures. Additional culture swabs were taken. Attention was turned to the anterior lateral incision which was reopened and dissection taken down to the bone. EDL was retracted laterally EHL neurovascular bundle medially. Nail elevator was used to help expose the bone and periosteum reflected off the bone and over the anterior lateral plate. Again this was overgrown distally and an osteotome was used to expose the distal end of the 1/3 tubular plate. Screws were exposed using the osteotome and then removed with a screwdriver plate was removed. There were 3 free screws that were encased in bone. C-arm was used to help localize these as well as the osteotome and rongeur to expose them and then free up around them so that the screwdriver could be used to remove the screws. This completed a total screw and plate removal from the left lower extremity. This was confirmed on fluoroscopy. Attention was then turned to the patient's anterior ankle impingement lesion which was a large distal tibial spur from central to lateral. Osteotome was positioned and a osteotome and mallet were used to remove the distal tibial spur this was confirmed on lateral fluoroscopy. Ankle joint was inspected and grossly intact. Bone debris was removed. Once this was completed Tourniquet was released and hemostasis achieved. A Thorough irrigation and debridement soft tissue skin subcutaneous tissue and bone was completed and the wound was irrigated with 6 L of pulsatile lavage saline. Following this new drapes and clean gloves and instruments were exchanged. Attention turned to wound closure. Anterior lateral wound was closed with 2-0 PDS 4-0 Monocryl and 3-0 nylon suture. Attention was then turned medially to the more complex wound where the sinus area had been excised. In order to get closure soft tissues were mobilized and retention trauma sutures were used for initial approximation and then 2-0 PDS 3-0 nylon and 2-0 nylon were used in between. Trauma sutures were removed. 30 cc of 0.25% Marcaine with epinephrine were injected for local anesthesia. Sterile dressing with Xeroform gauze ABD pads and Webril and a stirrup splint were applied. Patient was woken from anesthesia and taken to the recovery room in good condition there no immediate complications from this procedure. All counts were correct. Complications: none Post-operative Condition: stable Disposition: PACU Plan for aftercare: Minimize weight-bearing. May touchdown the foot in the splint for balance and minimal walking. Try to elevate as much as possible to help with incision healing. You have been prescribed an antibiotic take this as directed. Follow- up in approximately 2 weeks in [facility] for a wound check. We will follow up intraoperative cultures.
[2023-07-17] MEDS: CEFAZOLIN 2 GM/100 ML PREMIX 100 ML IV (16:08)
--- NOTE | 2023-07-17 16:13 | SUR.OPER ---
Supine on padded OR bed, head on pillow, arms secured on padded arm boards at <90 degrees abduction, legs uncrossed, safety belt at lower torso, tape over blanket over right lower leg. Left leg sterile draped and in control of the Surgeon. Rolled blanket bump under left hip placed by Dr. Clarke and folded blanket bump under left leg.
[2023-07-17] MEDS: BUPIVACAINE 0.25% (PF) 30 ML, EPINEPHrine 0.15 MG INJ (16:18)
[2023-07-17 17:51] LABS: Add Manual Diff / Slide Review NO; Basophils Absolute Auto 100 /uL (0-100); Basophils Percent Auto 0.9 % (0-2); Eosinophils Absolute Auto 200 /uL (0-450); Eosinophils Percent Auto 3.2 % (2-4); Hematocrit 40.4 % (41-53); Hemoglobin 14.5 g/dL (13.5-17.5); Lymphocytes Absolute Auto 1600 /uL (1100-4500); Lymphocytes Percent Auto 29.4 % (25-40); Mean Corpuscular HGB Conc 35.8 % (30-36); Mean Corpuscular Hemoglobin 34.5 PG (26-34); Mean Corpuscular Volume 96.3 fL (80-100); Monocytes Absolute Auto 500 /uL (0-900); Monocytes Percent Auto 9.3 % (3-14); Neutrophils Absolute Auto 3200 /uL (1500-7000); Neutrophils Percent Auto 57.2 % (50-75); Platelet Count 171 X10^3/uL (150-400); Red Cell Distribution Width 13.4 % (11.6-14.8); White Blood Cell Count 5.5 X10^3/uL (4.5-11.0)
[2023-07-17 18:05] LABS: BUN Creatinine Ratio 16.7 (6-22); Blood Urea Nitrogen 13 mg/dL (9-20); Calcium 8.6 mg/dL (8.4-10.2); Carbon Dioxide 27 mmol/L (22-32); Chloride 101 mmol/L (98-107); Estimated Glomerular Filt Rate > 60 mL/min (>60); Glucose 129 mg/dL (80-110); HEMOLYSIS < 15 (0-50); Potassium 3.8 mmol/L (3.4-5.1); Sodium 134 mmol/L (137-145)
[2023-07-17 18:06] LABS: C-Reactive Protein Quant 1.3 mg/dL (<1.0)
[2023-07-17 18:23] LABS: Erythrocyte Sedimentation Rate 17 MM/HR (0-15)
[2023-07-17 18:30] VITALS: BP 143/93; PULSE 77; RESP 14; TEMP 37.1; O2SAT 95
[2023-07-17 18:40] VITALS: BP 129/85; PULSE 63; RESP 14; TEMP 36.8; O2SAT 98
[2023-07-17 18:43] VITALS: BP 116/83; PULSE 77; RESP 12; O2SAT 99
[2023-07-17 18:48] VITALS: BP 102/76; PULSE 61; RESP 12; TEMP 36.8; O2SAT 98
[2023-07-17] MEDS: OXYCODONE IR 5 MG TABLET PO (18:53)
[2023-07-17 18:56] VITALS: BP 129/90; PULSE 66; RESP 14; TEMP 36.8; O2SAT 98
== END 2023-07-17 19:30 | disposition home or self-care (01) ==
PROVIDERS: PCP Physician Assistant; Referring Provider Orthopaedic Surgery Foot and Ankle Surgery; Visit Provider Orthopaedic Surgery Foot and Ankle Surgery
PROC: (CPT 27635; principal; 2023-07-17 15:00)
DX: M86.662 Other chronic osteomyelitis, left tibia and fibula (principal); M25.872 Other specified joint disorders, left ankle and foot; M19.172 Post-traumatic osteoarthritis, left ankle and foot; T84.84XA Pain due to internal orthopedic prosthetic devices, implants and grafts, initial encounter
CPT/HCPCS: 27635; 27704; 11044; 73600; 76000; 80048; 85025; 85651; 86140; 87070; 87075; 87077; 87147; 87186; 87205; J0171; J0690; J1885; J2405; J2704; J3010

== ENCOUNTER → 2023-07-23 16:28 | Outpatient (CLI) | payer OTHER, SELFPAY ==
[2019-09-26 16:00] VITALS: BMI 30.5
[2023-07-23 17:26] LABS: Creatine Kinase 69 U/L (55-170)
== END ==
PROVIDERS: PCP Physician Assistant; Referring Provider Internal Medicine Infectious Disease; Visit Provider Internal Medicine Infectious Disease
DX: A49.02 Methicillin resistant Staphylococcus aureus infection, unspecified site (principal)
CPT/HCPCS: 36415; 82550